=== PATIENT | male | born 1965 | race American Indian/Alaskan Native ===

== ENCOUNTER 2019-01-03 08:54 | Inpatient (IN) | payer OTHER ==
--- NOTE | 2019-01-03 09:47 | PDOC ---
History of Present Illness - General Chief Complaint: Revisit, Lab Variance Stated Complaint: SENT BY PCP/KIDNEY FAILURE Time Seen by Provider: 01/03/19 09:30 History Source: Patient Exam Limitations: No Limitations - History of Present Illness Initial Comments: 01/03/19 09:47 HPI 53 YOM with h/o DM2, HTN, HLD (selfdcd all his meds ~2-3 months ago), CKD presenting with abnormal outpatient lab results. He went to see his commercial insurance underwriter Dr Nori Mike ~several days ago for followup of his prior CKD surveillance (GFR ~15 previously), found to have elevated Cr and referred to the ED yesterday. Over the past 3 days, he has noted lower extremity edema worse with lying down and sitting. He notes over the past 2 weeks, he has experienced progressive weakness and mild dyspnea and pallor. Able to urinate and eating/drinking normally, no constitutional sx, no decreased output, dark urine, urgency/frequency, polydipsia or polyuria. Denies fever, chills, chest pain, palpitation, dizziness, weakness, N, V, D, abdominal pain, bladder and bowel problems, Last renal/bladder US ~2016, normal morphology. He self dcd his meds for diabetes, HTN and HLD. denies NSAID use or nephrotoxic agents. No otc meds or supplements. per commercial insurance underwriter - he has been followed for CKD with GFR ~15. Allergies: NKA Past Medical History: DM2, HTN, HLD Social history: Lives with family. No smoking. No alcohol. No illicit drugs. Surgical history: none PMD: none Senior Network Security Architect: Dr Nori Mike ROS Constitutional: no fevers or chills. No weight loss or anorexia/appetite changes. HEENT: no headache or dizziness. No congestion. No visual/hearing disturbances. CVS: no cp or syncope. +peripheral edema. Resp: +sob. No cough. Gastrointestinal: no abdominal pain, nausea or vomiting. Genitourinary: no urinary sx, hematuria. No urgency or frequency, no dark urine or malodor. No oliguria. MUSCULOSKELETAL: No joint pain and swelling. No neck or back pain. SKIN: no redness or skin changes, no discharge, no rash. No wounds. Hematologic: no easy bruising/bleeding. +pallor. NEUROLOGIC: No headache, dizziness, LOC or altered mental status. No weakness, numbness or tingling. Allergic/Immunologic: no allergies Endocrine: no polyuria or polydipsia, no hyperglycemia or hypoglycemia All other systems reviewed and negative, or as documented in HPI. PE: General: Well appearing, awake and alert, NAD. HEENT: NCAT, PERRL, EOMI, clear conjunctiva, anicteric, moist mucus membranes, clear oropharynx, no oral lesions.. Neck: neck supple, FROM; no JVD. Resp: CTAB, normal and even respirations, no respiratory distress CVS: mild tachycardia, no murmurs, 2+ peripheral pulses throughout, 2+ peripheral edema Abdomen: soft, NTND. no flank tenderness, no CVAT. Rectal: no gross blood, brown stool in rectal vault. no masses. Back: nontender, normal inspection and ROM MSK: no edema, CONTRERAS x4, ROM intact. No clubbing or cyanosis. normal bulk and tone. Extremities: no calf tenderness; 2+ peripheral pitting edema bilaterally over pretibial region. Neuro: alert, oriented appropriately; no focal neurologic deficits Skin: warm and well perfused, cap refill <2 sec, mild pallor for ethnicity; no ecchymosis, no erythema 01/03/19 10:46 01/03/19 10:46 01/03/19 11:21 01/03/19 11:35 Past History - Past Medical History Allergies/Adverse Reactions: Allergies Allergy/AdvReac Type Severity Reaction Status Date / Time No Known Allergies Allergy Verified 01/03/19 09:02 Home Medications: Ambulatory Orders NK [No Known Home Medication] 01/03/19 COPD: No Diabetes: Yes (NIDM) HTN: Yes Hypercholesterolemia: Yes - Immunization History Immunization Up to Date: Yes - Suicide/Smoking/Psychosocial Hx Smoking History: Never smoked Have you smoked in the past 12 months: No Information on smoking cessation initiated: No Hx Alcohol Use: No Drug/Substance Use Hx: No *Physical Exam - Vital Signs Last Vital Signs Temp Pulse Resp BP Pulse Ox 97.9 F 108 H 18 142/80 100 01/03/19 08:56 01/03/19 08:56 01/03/19 08:56 01/03/19 08:56 01/03/19 08:56 Moderate Sedation - Procedure Monitoring Vital Signs: Procedure Monitoring Vital Signs Temperature 97.9 F 01/03/19 08:56 Pulse Rate 108 H 01/03/19 08:56 Respiratory Rate 18 01/03/19 08:56 Blood Pressure 142/80 01/03/19 08:56 O2 Sat by Pulse Oximetry (%) 100 01/03/19 08:56 Heart Score/ECG Review #1 ECG reviewed & interpreted by me at: 09:40 General ECG Interpretation: Sinus Rhythm Compared to previous ECG there are: Previous ECG unavail 01/03/19 10:32 EKG normal sinus rhythm at 98 bpm, no interval abnormalities, narrow QRS, ST and T wave segments and morphology normal. Nonspecific T wave abnormalities ED Treatment Course - LABORATORY CBC & Chemistry Diagram: 01/03/19 09:45 01/03/19 09:45 - RADIOLOGY Radiology Studies Ordered: Category Date Time Status CHEST PA & LAT [RAD] Stat Radiology 01/03/19 09:29 Ordered Medical Decision Making - Medical Decision Making 01/03/19 10:31 See HPI for details dDx. renal insufficiency, ATN, pre-renal, electrolyte/metabolic Vital signs reviewed, wnl. mild tachy but no systemic sx or fever. tachy likely from severe anemia noted Prior images reviewed, no prior notes or admissions/discharges. laboratory results and imaging reviewed, basic labs and lytes notable for: - acute anemia, H/H 6.7/21 - with low mcv c/w microcytic anemia, also likely stemming from worsening renal failure. - anemia panel sent. txs - guaiac neg, brown stool - transfuse 2 units PRBC. pt consented with indications, risks and benefits of blood transfusion, agreeable, consent signed in chart. - IVF hydration. - Cr worsening, GFR 3 - urine lytes sent to differentiate. FeNa 1.9%, suspecting intrinsic renal failure consistent with known CKD and now worsening insufficiency. - potassium and remainder of lytes normal UA_+proteinuria, CXR_no acute chest pathology. EKG normal sinus rhythm at 98 bpm, no interval abnormalities, narrow QRS, ST and T wave segments and morphology normal. Nonspecific T wave abnormalities ED course - nephro cs with Dr Nori Mike. spoke with Dr Perez, will need non-emergent dialysis, arrangement for admission, [facility] cs with Dr Bliar service for access placement. - admit to hospitalist service - Dr Pizarro- for anemia, HELEN on CKD workup, vascular planning and HD/medical management. s/o to AYAZ Cade with the case and admitting to hospitalist service. 01/03/19 11:37 01/03/19 11:39 *DC/Admit/Observation/Transfer Diagnosis at time of Disposition: Anemia Qualifiers: Chronic kidney disease stage: unspecified stage Acute on chronic kidney failure Qualifiers: Acute renal failure type: unspecified Chronic kidney disease stage: unspecified stage Qualified Code(s): N17.9 - Acute kidney failure, unspecified - Discharge Dispostion Condition at time of disposition: Guarded Decision to Admit order: Yes Decision to Admit order Date/Time: 01/03/19 11:31 Decision to Admit Order Category Date Time Status Decision to Admit to Hospital Routine Admission 01/03/19 11:25 Ordered - Referrals Referrals: Nori Mike MD [Primary Care Provider] - - Patient Instructions - Post Discharge Activity
[2019-01-03 10:00] LABS: BASO % 0.5 % (0-2.0); EOS % 0.5 % (0-4.5); HEMATOCRIT 21.1 % (35.4-49); LYMPH % 16.8 % (8-40); MCHC 31.7 g/dl (32.0-35.9); MEAN CELL VOLUME 56.4 fl (80-96); MEAN PLT VOLUME 8.9 fl (7.5-11.1); NEUT % 75.2 % (42.8-82.8); PLATELET COUNT 300 K/MM3 (134-434); RBC 3.74 M/mm3 (4.00-5.60); RDW 17.8 % (11.9-15.9); WHITE BLOOD COUNT 12.4 K/mm3 (4.0-10.0)
[2019-01-03 10:01] LABS: MCH 17.9 pg (25.7-33.7)
[2019-01-03 10:03] LABS: HEMOGLOBIN 6.7 GM/dL (11.7-16.9)
[2019-01-03] MEDS ORDERED: SODIUM CHLORIDE 0.9% 500 ML INFUS.BAG IV ONE (10:34)
[2019-01-03 10:45] LABS: ALBUMIN 2.8 g/dl (3.4-5.0); ALK PHOS 120 U/L (45-117); ANION GAP 15 MMOL/L (8-16); BILIRUBIN,TOTAL 0.3 mg/dL (0.2-1); CHLORIDE 104 mmol/L (98-107); CO2 15 mmol/L (21-32); GLUCOSE,RANDOM 129 mg/dL (74-106); POTASSIUM 3.6 mmol/L (3.5-5.1); SGOT/AST 6 U/L (15-37); SGPT/ALT 11 U/L (13-61); SODIUM 134 mmol/L (136-145); TOT PROT 7.7 g/dl (6.4-8.2)
[2019-01-03 11:17] LABS: URINE APPEARANCE SLCLOUDY; URINE BILIRUBIN NEGATIVE (<2.0 mg/dL); URINE COLOR LTYELLOW; URINE GLUCOSE (UA) 2+ (NEGATIVE); URINE KETONE NEGATIVE (NEGATIVE); URINE LEUK ESTERASE NEGATIVE (NEGATIVE); URINE NITRITE NEGATIVE (NEGATIVE); URINE PROTEIN 3+ (NEGATIVE); URINE UROBILINOGEN NEGATIVE mg/dL (0.2-1.0)
[2019-01-03 11:18] LABS: URINE BACTERIA RARE /hpf (NONE SEEN)
[2019-01-03 11:42] LABS: URINE POTASSIUM 25.3 MMOL/L (25-125)
[2019-01-03 11:55] LABS: ANISOCYTOSIS 3+; MACROCYTOSIS 0; OVALOCYTE 1+; PLATELET ESTIMATE NORMAL; TARGET CELLS 1+
[2019-01-03 12:03] LABS: BLOOD UREA NITROGEN 149 mg/dL (7-18); CREATININE 15.4 mg/dL (0.55-1.3)
[2019-01-03 12:04] LABS: CALCIUM 6.4 mg/dL (8.5-10.1)
--- NOTE | 2019-01-03 12:09 | HP ---
CHIEF COMPLAINT: Fatigue, dyspnea PCP: Dr. Helton Reheater: Dr. Nori Mike HISTORY OF PRESENT ILLNESS: 53 year-old male with a PMH significant for HTN, Type II NIDDM, and CKD stage 5. Patient was referred to the ED by Dr. Nori Mike for symptoms of fatigue, dyspnea, lower extremity edema, and outpatient labs that showed BUN/Cr 130/14. [place] the [place] the past year and stopped taking his medications several months ago. He denies any change in urine output. No NSAID use. No recent contrast exposure. ED course (1) Hgb 6.7, MCV 56.4 (2) BUN/Cr 149/15.4 (3) Ca 6.4 Recent Travel: Arrived from [facility] 3 weeks ago PAST MEDICAL HISTORY: Hypertension Type II NIDDM CKD Stage 5 PAST SURGICAL HISTORY: Lasik surgery Social History: lives with family Smoking: denies Alcohol: denies Drugs: denies Family History: Allergies No Known Allergies Allergy (Verified 01/03/19 09:02) HOME MEDICATIONS: Home Medications Medication Instructions Recorded NK [No Known Home Medication] 01/03/19 REVIEW OF SYSTEMS CONSTITUTIONAL: +fatigue Absent: fever, chills, diaphoresis, generalized weakness, malaise, loss of appetite, weight change HEENT: Absent: rhinorrhea, nasal congestion, throat pain, throat swelling, difficulty swallowing, mouth swelling, ear pain, eye pain, visual changes CARDIOVASCULAR: Absent: chest pain, syncope, palpitations, irregular heart rate, lightheadedness , peripheral edema RESPIRATORY: +dyspnea Absent: cough, shortness of breath, dyspnea with exertion, orthopnea, wheezing, stridor, hemoptysis GASTROINTESTINAL: Absent: abdominal pain, abdominal distension, nausea, vomiting, diarrhea, constipation, melena, hematochezia GENITOURINARY: +lower extremity edema Absent: dysuria, frequency, urgency, hesitancy, hematuria, flank pain, genital pain MUSCULOSKELETAL: Absent: myalgia, arthralgia, joint swelling, back pain, neck pain SKIN: Absent: rash, itching, pallor HEMATOLOGIC/IMMUNOLOGIC: Absent: easy bleeding, easy bruising, lymphadenopathy, frequent infections ENDOCRINE: Absent: unexplained weight gain, unexplained weight loss, heat intolerance, cold intolerance NEUROLOGIC: Absent: headache, focal weakness or paresthesias, dizziness, unsteady gait, seizure, mental status changes, bladder or bowel incontinence PSYCHIATRIC: Absent: anxiety, depression, suicidal or homicidal ideation, hallucinations. PHYSICAL EXAMINATION Vital Signs - 24 hr 01/03/19 01/03/19 08:56 09:56 Temperature 97.9 F Pulse Rate 108 H Respiratory 18 Rate Blood Pressure 142/80 O2 Sat by Pulse 100 100 Oximetry (%) GENERAL: Awake, alert, and fully oriented, in no acute distress. HEAD: Normal with no signs of trauma. EYES: Pupils equal, round and reactive to light, extraocular movements intact, sclera anicteric, conjunctiva clear. No lid lag. EARS, NOSE, THROAT: Ears normal, nares patent, oropharynx clear without exudates. Moist mucous membranes. NECK: Normal range of motion, supple without lymphadenopathy, JVD, or masses. LUNGS: Breath sounds equal, clear to auscultation bilaterally. No wheezes, and no crackles. No accessory muscle use. HEART: Regular rate and rhythm, normal S1 and S2 without murmur, rub or gallop. ABDOMEN: Soft, nontender, not distended, normoactive bowel sounds, no guarding, no rebound, no masses. No hepatomegaly or splenomegaly. MUSCULOSKELETAL: Normal range of motion at all joints. No bony deformities or tenderness. No CVA tenderness. UPPER EXTREMITIES: 2+ pulses, warm, well-perfused. No cyanosis. No clubbing. No peripheral edema. LOWER EXTREMITIES: 2+ pulses, warm, well-perfused. No calf tenderness. Trace bilateral edema. NEUROLOGICAL: Cranial nerves II-XII intact. Normal speech. Laboratory Results - last 24 hr 01/03/19 01/03/19 01/03/19 09:45 09:45 10:00 WBC 12.4 H RBC 3.74 L Hgb 6.7 L* Hct 21.1 L MCV 56.4 L MCH 17.9 L MCHC 31.7 L RDW 17.8 H Plt Count 300 MPV 8.9 Absolute Neuts (auto) 9.4 H Neutrophils % 75.2 Lymphocytes % 16.8 Monocytes % 7.0 Eosinophils % 0.5 Basophils % 0.5 Nucleated RBC % 0 Hypochromia 1+ Platelet Estimate Normal Polychromasia 3+ Poikilocytosis 1+ Anisocytosis 3+ Microcytosis 2+ Macrocytosis 0 Target Cells 1+ Ovalocytes 1+ Retic Count Sodium 134 L Potassium 3.6 Chloride 104 Carbon Dioxide 15 L Anion Gap 15 BUN 149 H* Creatinine 15.4 H* Creat Clearance w eGFR 3.34 Random Glucose 129 H Calcium 6.4 L* Ferritin Total Bilirubin 0.3 AST 6 L ALT 11 L Alkaline Phosphatase 120 H LD Total Total Protein 7.7 Albumin 2.8 L Urine Color Urine Appearance Urine pH Ur Specific Kinsley Urine Protein Urine Glucose (UA) Urine Ketones Urine Blood Urine Nitrite Urine Bilirubin Urine Urobilinogen Ur Leukocyte Esterase Urine WBC (Auto) Urine RBC (Auto) Urine Bacteria U Random Total Protein Ur Random Sodium Urine Creatinine Stool Occult Blood Blood Type AB POSITIVE Antibody Screen Negative Crossmatch 01/03/19 01/03/19 01/03/19 10:13 10:13 10:20 WBC RBC Hgb Hct MCV MCH MCHC RDW Plt Count MPV Absolute Neuts (auto) Neutrophils % Lymphocytes % Monocytes % Eosinophils % Basophils % Nucleated RBC % Hypochromia Platelet Estimate Polychromasia Poikilocytosis Anisocytosis Microcytosis Macrocytosis Target Cells Ovalocytes Retic Count Sodium Potassium Chloride Carbon Dioxide Anion Gap BUN Creatinine Creat Clearance w eGFR Random Glucose Calcium Ferritin Total Bilirubin AST ALT Alkaline Phosphatase LD Total Total Protein Albumin Urine Color Ltyellow Urine Appearance Slcloudy Urine pH 5.0 Ur Specific Kinsley 1.012 Urine Protein 3+ H 568 H Urine Glucose (UA) 2+ H Urine Ketones Negative Urine Blood 1+ H Urine Nitrite Negative Urine Bilirubin Negative Urine Urobilinogen Negative Ur Leukocyte Esterase Negative Urine WBC (Auto) 13 Urine RBC (Auto) 1 Urine Bacteria Rare U Random Total Protein 567.6 H Ur Random Sodium 38 L Urine Creatinine 90.0 Stool Occult Blood Blood Type AB POSITIVE Antibody Screen Negative Crossmatch See Detail 01/03/19 01/03/19 01/03/19 10:32 10:32 10:45 WBC RBC Hgb Hct MCV MCH MCHC RDW Plt Count MPV Absolute Neuts (auto) Neutrophils % Lymphocytes % Monocytes % Eosinophils % Basophils % Nucleated RBC % Hypochromia Platelet Estimate Polychromasia Poikilocytosis Anisocytosis Microcytosis Macrocytosis Target Cells Ovalocytes Retic Count 1.86 H Sodium Potassium Chloride Carbon Dioxide Anion Gap BUN Creatinine Creat Clearance w eGFR Random Glucose Calcium Ferritin 175.8 Total Bilirubin AST ALT Alkaline Phosphatase LD Total 206 Total Protein Albumin Urine Color Urine Appearance Urine pH Ur Specific Kinsley Urine Protein Urine Glucose (UA) Urine Ketones Urine Blood Urine Nitrite Urine Bilirubin Urine Urobilinogen Ur Leukocyte Esterase Urine WBC (Auto) Urine RBC (Auto) Urine Bacteria U Random Total Protein Ur Random Sodium Urine Creatinine Stool Occult Blood Negative Blood Type Antibody Screen Crossmatch ASSESSMENT/PLAN: 53 year-old male with a PMH significant for HTN, Type II NIDDM, and CKD stage 5. Admitted for progressive CKD likely due to underlying diabetic nephropathy. Progressive CKD likely secondary to diabetic nephropathy Metabolic acidosis --for tunneled catheter placement tomorrow followed by dialysis --US renal vein and kidneys to r/o obstruction --start sodium bicarb BID Acute on chronic anemia --Hgb 6.7 --transfusing 2U PRBC today Hypocalcemia --corrected calcium 7.4 --calcium carbonate BID Hypertension --BP is stable Type II NIDDM --had been on metformin before self dc'ing ~ 4 months ago --Novolog sliding scale coverage --A1C pending FEN Fluids: PO intake adequate Electrolytes: replete as indicated Nutrition: diabetic, low sodium DVT prophylaxis: subq heparin Dispo: continues to require inpatient care. Full code. Visit type - Emergency Visit Emergency Visit: Yes ED Registration Date: 01/03/19 Care time: The patient presented to the Emergency Department on the above date and was hospitalized for further evaluation of their emergent condition. - New Patient This patient is new to me today: Yes Date on this admission: 01/03/19 - Critical Care Critical Care patient: No
--- NOTE | 2019-01-03 12:23 | CONSULT ---
Consult - text type - Consultation Consultation Note: Renal consult for progressive CKD This is a 53 year old [place] gentleman with hx of CKD stage 5, DM, Hypertension who presented from home with fatigue and dyspnea with outpatient labs that showed BUN/Cr of 130/14. Pt follow with Dr. Nori Mike but has been out of the country for the past year. He has been off all his antihypertensives and DM medications for the past several months. Does have Leg swelling and and orthopnea. No N/V. Appetite is normal. No flank pain. Denies any change in urine output. No NSAID use. No recent contrast exposure. PMHx: as above Allergies: NKDA Family Hx: NC Social Hx: No T/A/D ROS: as per HPI Home Medications Medication Instructions Recorded NK [No Known Home Medication] 01/03/19 Vital Signs Temperature 98.2 F 01/03/19 12:10 Pulse Rate 103 H 01/03/19 12:10 Respiratory Rate 18 01/03/19 12:10 Blood Pressure 138/79 01/03/19 12:10 O2 Sat by Pulse Oximetry (%) 96 01/03/19 12:10 Intake & Output 12/31/18 01/01/19 01/02/19 01/03/19 23:59 23:59 23:59 23:59 Weight 74.843 kg NAD awake and alert neck supple, no JVD RRR, NO M/R CTA but decreased BS soft NT/ND Trace LE edema, no clubbing or cyanosis No bladder distension CBC, BMP 01/03/19 09:45 01/03/19 09:45 Current Medications Heparin Sodium (Porcine) (Heparin -) 5,000 unit SQ TID IESHA Insulin Aspart (Novolog Vial Sliding Scale -) 1 vial SQ ACHS [facility]; Protocol 53 year old [place] gentleman with hx of CKD stage 5, DM, Hypertension who presented from home with fatigue and dyspnea with outpatient labs that showed BUN/Cr of 130/14. #Progressive CKD likely due to underlying diabetic nephropathy #Acute on chronic anemia #Metabolic acidosis #Hyponatremia #Hypertension #DM Pt will need renal replacement therapy, plan for tunneled HD catheter placement tomorrow and then subsequent dialysis Check repeat Renal US and renal vein doppler to ensure there is no obstruction Check ANAID, ANCA, SPEP Start sodium bicarb 650mg BID to get PRBC transfusion today and will start KENDRICK/Venofer with dialysis BP is acceptable today check Hgb A1C Thank you Will follow Billy Perez DO
[2019-01-03] MEDS ORDERED: CALCIUM GLUCONATE 10% - 1,000 MG/10 ML VIAL IVPB ONE (12:25)
[2019-01-03] MEDS ORDERED: FUROSEMIDE 40 MG/4 ML INJECTABLE VIAL IVPUSH ONE (12:26)
[2019-01-03 12:59] LABS: PHOSPHOROUS 6.7 mg/dL (2.5-4.9)
--- NOTE | 2019-01-03 15:22 | SPA.PREOP ---
- PRE-OP NOTE Dx: CKD stage 5 Planned Procedure: Permacath placement scheduled for 01/04 Surgeon: Dr Blair Last Vital Signs Temp Pulse Resp BP Pulse Ox 98.2 F 103 H 18 138/79 96 01/03/19 12:10 01/03/19 12:10 01/03/19 12:10 01/03/19 12:10 01/03/19 12:10 Lab Results WBC 12.4 K/mm3 (4.0-10.0) H 01/03/19 09:45 RBC 3.74 M/mm3 (4.00-5.60) L 01/03/19 09:45 Hgb 6.7 GM/dL (11.7-16.9) L* 01/03/19 09:45 Hct 21.1 % (35.4-49) L 01/03/19 09:45 MCV 56.4 fl (80-96) L 01/03/19 09:45 MCHC 31.7 g/dl (32.0-35.9) L 01/03/19 09:45 RDW 17.8 % (11.9-15.9) H 01/03/19 09:45 Plt Count 300 K/MM3 (134-434) 01/03/19 09:45 Sodium 134 mmol/L (136-145) L 01/03/19 09:45 Potassium 3.6 mmol/L (3.5-5.1) 01/03/19 09:45 Chloride 104 mmol/L (98-107) 01/03/19 09:45 Carbon Dioxide 15 mmol/L (21-32) L 01/03/19 09:45 Anion Gap 15 MMOL/L (8-16) 01/03/19 09:45 BUN 149 mg/dL (7-18) H* 01/03/19 09:45 Creatinine 15.4 mg/dL (0.55-1.3) H* 01/03/19 09:45 Random Glucose 129 mg/dL (74-106) H 01/03/19 09:45 Calcium 6.4 mg/dL (8.5-10.1) L* 01/03/19 09:45 Blood Type AB POSITIVE 01/03/19 10:20 Antibody Screen Negative 01/03/19 10:20 - IMAGING Chest X-ray: Pending EKG: Pending - ASSESSMENT/PLAN 53 y/o M w/ PMHx CKD stage 5, DM, HTN a/w fatigue and dyspnea found to have worsening renal function, planned for Permacath placement 01/04. 1. Make NPO after midnight except po meds 2. Medical optimization / clearance 3. Consent to be obtained by surgeon after risks, benefits and alternatives discussed with patient and or Health Care Proxy. 4. 2 units prbc ordered by primary team for h/h 6.7/21.1, f/u AM labs (cbc, chem) 5. Hold AM Heparin sq
--- NOTE | 2019-01-03 15:36 | EKG ---
Test Reason : Blood Pressure : / mmHG Vent. Rate : 098 BPM Atrial Rate : 098 BPM P-R Int : 186 ms QRS Dur : 104 ms QT Int : 364 ms P-R-T Axes : 009 049 101 degrees QTc Int : 464 ms NORMAL SINUS RHYTHM PROLONGED QT ABNORMAL ECG NO PREVIOUS ECGS AVAILABLE Confirmed by YAJAIRA RIVERA MD ([id number]) on 01/03/2019 3:35:42 PM Referred By: Confirmed By:YAJAIRA RIVERA MD
[2019-01-03] MEDS ORDERED: PT OWN MED DRAWER 7, Y5N ONE (17:01)
[2019-01-03] MEDS: INSULIN SLIDING SCALE (NOVOLOG) 1 VIAL SQ SCH ×2 (17:49→22:45)
[2019-01-03] MEDS: SODIUM BICARBONATE 650 MG TABLET PO SCH (22:44)
[2019-01-03] MEDS: CALCIUM CARBONATE 650 MG TABLET PO SCH (22:44)
[2019-01-04] MEDS: HEPARIN NA (PORCINE) 5,000 UNITS/ML 1ML VIAL SQ SCH ×2 (06:04→23:13)
[2019-01-04] MEDS: INSULIN SLIDING SCALE (NOVOLOG) 1 VIAL SQ SCH ×3 (06:04→20:33)
[2019-01-04 08:04] LABS: ACTIVATED PTT 30.5 SECONDS (25.2-36.5); INR 1.15 (0.83-1.09); PROTHROMBIN TIME (PATIENT) 13.6 SEC (9.7-13.0)
[2019-01-04 08:09] LABS: BASO % 0.2 % (0-2.0); EOS % 0.1 % (0-4.5); HEMATOCRIT 27.5 % (35.4-49); HEMOGLOBIN 8.9 GM/dL (11.7-16.9); LYMPH % 13.8 % (8-40); MCH 20.1 pg (25.7-33.7); MCHC 32.3 g/dl (32.0-35.9); MEAN CELL VOLUME 62.1 fl (80-96); MEAN PLT VOLUME 8.8 fl (7.5-11.1); MONO % 5.8 % (3.8-10.2); NEUT % 80.1 % (42.8-82.8); PLATELET COUNT 293 K/MM3 (134-434); RBC 4.43 M/mm3 (4.00-5.60); RDW 25.5 % (11.9-15.9); WHITE BLOOD COUNT 11.8 K/mm3 (4.0-10.0)
[2019-01-04] MEDS ORDERED: PT OWN MED DRAWER 7, Y5N ONE ×3 (08:52→22:48)
[2019-01-04] MEDS: CALCIUM CARBONATE 650 MG TABLET PO SCH ×2 (09:09→23:13)
[2019-01-04] MEDS: SODIUM BICARBONATE 650 MG TABLET PO SCH ×2 (09:09→23:13)
[2019-01-04 09:19] LABS: GLUCOSE,RANDOM 119 mg/dl (74-106)
[2019-01-04 09:20] LABS: ANION GAP 18 MMOL/L (8-16); CHLORIDE 106 mmol/L (98-107); CO2 13 mmol/L (21-32); MAGNESIUM 1.7 mg/dL (1.8-2.4); PHOSPHOROUS 7.4 mg/dl (2.5-4.9); POTASSIUM 3.9 mmol/L (3.5-5.1); SODIUM 137 mmol/L (136-145); TOT PROT 7.6 g/dl (6.4-8.2)
[2019-01-04 09:21] LABS: ALBUMIN 2.7 g/dl (3.4-5.0); ALK PHOS 123 U/L (45-117); BILIRUBIN,TOTAL 0.4 mg/dl (0.2-1); SGOT/AST 6 U/L (15-37); SGPT/ALT 9 U/L (13-61)
[2019-01-04 09:24] LABS: BLOOD UREA NITROGEN 147 mg/dl (7-18)
--- NOTE | 2019-01-04 09:47 | PN ---
Progress Note (short form) - Note Progress Note: multiple attempts to see the patient today but was in imaging and procedures all day Current Medications Generic Name Dose Route Start Last Admin Trade Name Jese PRN Reason Stop Dose Admin Calcium Carbonate 1,300 mg 01/03/19 22:00 01/04/19 09:09 Calcium Carbonate - PO 1,300 mg BID IESHA Administration Heparin Sodium (Porcine) 5,000 unit 01/04/19 06:00 01/04/19 06:04 Heparin - SQ Not Given TID IESHA Insulin Aspart 1 vial 01/03/19 16:30 01/04/19 06:04 Novolog Vial Sliding Scale - SQ Not Given ACHS [facility] Protocol Sodium Bicarbonate 650 mg 01/03/19 22:00 01/04/19 09:09 Sodium Bicarbonate - PO 650 mg BID IESHA Administration Last Vital Signs Temp Pulse Resp BP Pulse Ox 98 F 100 H 20 159/88 96 01/04/19 05:00 01/04/19 05:00 01/04/19 05:00 01/04/19 05:00 01/03/19 12:10 CBCD WBC 11.8 K/mm3 (4.0-10.0) H 01/04/19 07:00 RBC 4.43 M/mm3 (4.00-5.60) 01/04/19 07:00 Hgb 8.9 GM/dL (11.7-16.9) L 01/04/19 07:00 Hct 27.5 % (35.4-49) L D 01/04/19 07:00 MCV 62.1 fl (80-96) L D 01/04/19 07:00 MCHC 32.3 g/dl (32.0-35.9) 01/04/19 07:00 RDW 25.5 % (11.9-15.9) H 01/04/19 07:00 Plt Count 293 K/MM3 (134-434) 01/04/19 07:00 MPV 8.8 fl (7.5-11.1) 01/04/19 07:00 CMP Sodium 137 mmol/L (136-145) 01/04/19 06:00 Potassium 3.9 mmol/L (3.5-5.1) 01/04/19 06:00 Chloride 106 mmol/L (98-107) 01/04/19 06:00 Carbon Dioxide 13 mmol/L (21-32) L 01/04/19 06:00 Anion Gap 18 MMOL/L (8-16) H 01/04/19 06:00 BUN 147 mg/dl (7-18) H* 01/04/19 06:00 Creatinine 15.0 mg/dl (0.55-1.3) H* 01/04/19 06:00 Creat Clearance w eGFR 3.45 (>60) 01/04/19 06:00 Random Glucose 119 mg/dl (74-106) H 01/04/19 06:00 Calcium 7.0 mg/dl (8.5-10) L 01/04/19 06:00 Total Bilirubin 0.4 mg/dl (0.2-1) 01/04/19 06:00 AST 6 U/L (15-37) L 01/04/19 06:00 ALT 9 U/L (13-61) L 01/04/19 06:00 Alkaline Phosphatase 123 U/L (45-117) H 01/04/19 06:00 Total Protein 7.6 g/dl (6.4-8.2) 01/04/19 06:00 Albumin 2.7 g/dl (3.4-5.0) L 01/04/19 06:00 Assessment and Plan 53 year-old male with a PMH significant for HTN, Type II NIDDM, and CKD stage 5. Admitted for progressive CKD likely due to underlying diabetic nephropathy. 1. AGMA- due to renal failure. plan for HD initiation today. plan for permacath placement. will repeat labs post HD. on bicarb. vascular and nephro on board 2. Progressive CKD stage V- plan for initiation of HD 3. Acute on chronic anemia- s/p 2 units PRBC. Hgb now stable. will monitor closely. no indication for transfusion. epogen given 4. Hypocalcemia- corrected Ca 8. will start regular supplementation 5. hypomagnesmia- to be corrected with HD 6. HTN- does not take medications at home. will monitor BP with HD 7. DVT ppx- hep sq 8. will need establishment of outpatient HD prior to discharge. Visit type - Emergency Visit Emergency Visit: Yes ED Registration Date: 01/03/19 Care time: The patient presented to the Emergency Department on the above date and was hospitalized for further evaluation of their emergent condition. - New Patient This patient is new to me today: Yes Date on this admission: 01/04/19 - Critical Care Critical Care patient: No - Discharge Referral Referred to [facility] Med [facility] No
[2019-01-04] MEDS ORDERED: SODIUM CHLORIDE 250 ML IV PRN ×5 (11:28→16:51)
[2019-01-04] MEDS ORDERED: CALCIUM ACETATE 667 MG CAPSULE (FP) PO SCH (12:00)
--- NOTE | 2019-01-04 12:38 | PN ---
Progress Note (short form) - Note Progress Note: Renal follow up for progressive CKD Pt seen and examined at the bedside no acute complaints NPO for permacath today no sob, cp, abd pain tolerated PRBC well Vital Signs Temperature 98.6 F 01/04/19 09:00 Pulse Rate 98 H 01/04/19 09:00 Respiratory Rate 20 01/04/19 09:00 Blood Pressure 148/88 01/04/19 09:00 O2 Sat by Pulse Oximetry (%) 96 01/04/19 09:00 Intake & Output 01/01/19 01/02/19 01/03/19 01/04/19 23:59 23:59 23:59 23:59 Intake Total 500 0 Balance 500 0 Weight 72.575 kg 74.435 kg NAD awake and alert neck supple, no JVD RRR, NO M/R CTA but decreased BS soft NT/ND Trace LE edema, no clubbing or cyanosis No bladder distension CBC, BMP 01/04/19 07:00 01/04/19 06:00 Current Medications Calcium Acetate (Phoslo -) 667 mg PO TIDCM [facility] Calcium Carbonate (Calcium Carbonate -) 1,300 mg PO BID [facility] Last Admin: 01/04/19 09:09 Dose: 1,300 mg Desmopressin Acetate (Ddavp Injection -) 20 mcg IVPB ONCE ONE Stop: 01/04/19 10:30 Epoetin Earl (Epogen -) 20,000 unit IVPUSH ONCE ONE Stop: 01/04/19 11:30 Heparin Sodium (Porcine) (Heparin -) 5,000 unit SQ TID [facility] Last Admin: 01/04/19 06:04 Dose: Not Given Sodium Chloride (Normal Saline -) 250 mls @ 3,000 mls/hr IV PRN PRN PRN Reason: Hypotension during Dialysis Stop: 01/05/19 11:29 Insulin Aspart (Novolog Vial Sliding Scale -) 1 vial SQ ACHS [facility]; Protocol Last Admin: 01/04/19 06:04 Dose: Not Given Sodium Bicarbonate (Sodium Bicarbonate -) 650 mg PO BID [facility] Last Admin: 01/04/19 09:09 Dose: 650 mg 53 year old [place] gentleman with hx of CKD stage 5, DM, Hypertension who presented from home with fatigue and dyspnea with outpatient labs that showed BUN/Cr of 130/14. #Progressive CKD likely due to underlying diabetic nephropathy #Acute on chronic anemia #Metabolic acidosis #Hyponatremia #Hypertension #DM for permacath today and then dialysis this evening 2nd session of dialysis on Monday will need outpatiet HD unit placement continue oral bicarb for now, expect bicarb to improve following dialysis will give DDAVP for plt dysfunction related to renal failure prior to procedure will give KENDRICK with HD, iron studies pending Billy Perez DO
[2019-01-04] MEDS: DESMOPRESSIN ACETATE 4 MCG/ML AMP IVPB ONE ×2 (14:10→14:22)
[2019-01-04] MEDS ORDERED: EPOETIN ALFA 20,000 UNIT/1 ML VIAL IVPUSH ONE ×2 (14:45→17:00)
[2019-01-04] MEDS ORDERED: MIDAZOLAM HCL 2 MG/2 ML SINGLE DOSE VIAL ONE (15:13)
[2019-01-04] MEDS ORDERED: ceFAZolin SODIUM 1 GM VIAL IVPB ONE (15:20)
[2019-01-04] MEDS ORDERED: ceFAZolin SODIUM 1 GM VIAL ONE (15:25)
--- NOTE | 2019-01-04 15:50 | OP ---
Operative Note - Note: Operative Date: 01/04/19 Pre-Operative Diagnosis: ESRD Operation: Placement Permacath Implants: 23 cm Permacath Post-Operative Diagnosis: Same as Pre-op Surgeon: Bryon Blair Anesthesiologist/PURCHASING SUPERVISOR: Julia Garsia Anesthesia: Fractional
[2019-01-04] MEDS ORDERED: ACETAMINOPHEN WITH CODEINE 300MG/30MG TABLET PO PRN (16:12)
[2019-01-04] MEDS: CALCIUM ACETATE 667 MG CAPSULE (FP) PO SCH (20:33)
[2019-01-05] MEDS: INSULIN SLIDING SCALE (NOVOLOG) 1 VIAL SQ SCH ×5 (01:06→21:48)
[2019-01-05] MEDS: HEPARIN NA (PORCINE) 5,000 UNITS/ML 1ML VIAL SQ SCH ×4 (01:07→21:45)
[2019-01-05 09:09] LABS: HEMATOCRIT 24.1 % (35.4-49); HEMOGLOBIN 8.3 GM/dL (11.7-16.9); MCH 20.9 pg (25.7-33.7); MCHC 34.4 g/dl (32.0-35.9); MEAN CELL VOLUME 60.9 fl (80-96); MEAN PLT VOLUME 8.9 fl (7.5-11.1); PLATELET COUNT 255 K/MM3 (134-434); RBC 3.97 M/mm3 (4.00-5.60); RDW 24.9 % (11.9-15.9); WHITE BLOOD COUNT 9.7 K/mm3 (4.0-10.0)
[2019-01-05 09:28] LABS: ANION GAP 10 MMOL/L (8-16); BLOOD UREA NITROGEN 71 mg/dL (7-18); CALCIUM 7.4 mg/dL (8.5-10.1); CHLORIDE 102 mmol/L (98-107); CO2 25 mmol/L (21-32); GLUCOSE,RANDOM 164 mg/dL (74-106); PHOSPHOROUS 3.5 mg/dL (2.5-4.9); POTASSIUM 3.1 mmol/L (3.5-5.1); SODIUM 137 mmol/L (136-145)
[2019-01-05 09:45] LABS: CREATININE 8.3 mg/dL (0.55-1.3)
--- NOTE | 2019-01-05 09:47 | PN ---
Physical Exam: SUBJECTIVE: Patient seen and examined at HD. He has no complaints. He denies SOB , CP, palpitations. OBJECTIVE: Vital Signs Period Temp Pulse Resp BP Sys/Eller Pulse Ox Last 24 Hr 97.8 F-99.0 F 90-100 14-20 140-165/52-95 95-96 GENERAL: The patient is awake, alert, and fully oriented, in no acute distress. LUNGS: Breath sounds equal, clear to auscultation bilaterally, no wheezes, no crackles, no accessory muscle use. HEART: Regular rate and rhythm, S1, S2 without murmur, rub or gallop. ABDOMEN: Soft, nontender, nondistended, normoactive bowel sounds, no guarding, no rebound, no hepatosplenomegaly, no masses. EXTREMITIES: 2+ pulses, warm, well-perfused, no edema. Laboratory Results - last 24 hr 01/04/19 01/04/19 01/05/19 12:00 17:30 06:39 WBC RBC Hgb Hct MCV MCH MCHC RDW Plt Count MPV Sodium Potassium Chloride Carbon Dioxide Anion Gap BUN Creatinine Creat Clearance w eGFR POC Glucometer 100 143 Random Glucose Calcium Phosphorus Hep C Ab Diagnostic Cancelled Hepatitis C RNA Cancelled HCV RNA PCR log manager endoscopy/ml Cancelled HCV RNA (PCR) IUs/ml Cancelled HCV RNA PCR w/Genot Rflx Cancelled Liver Fibrosis Interp Cancelled 01/05/19 01/05/19 08:30 08:30 WBC 9.7 RBC 3.97 L Hgb 8.3 L Hct 24.1 L MCV 60.9 L MCH 20.9 L MCHC 34.4 RDW 24.9 H Plt Count 255 MPV 8.9 Sodium 137 Potassium 3.1 L Chloride 102 Carbon Dioxide 25 Anion Gap 10 BUN 71 H Creatinine 8.3 H* Creat Clearance w eGFR 6.82 POC Glucometer Random Glucose 164 H Calcium 7.4 L Phosphorus 3.5 Hep C Ab Diagnostic Hepatitis C RNA HCV RNA PCR log manager endoscopy/ml HCV RNA (PCR) IUs/ml HCV RNA PCR w/Genot Rflx Liver Fibrosis Interp Active Medications Generic Name Dose Route Start Last Admin Trade Name Freq PRN Reason Stop Dose Admin Acetaminophen/Codeine Phosphate 1 tab 01/04/19 16:12 Tylenol # 3 - PO Q4H PRN PAIN LEVEL 4 - 6 Calcium Acetate 667 mg 01/04/19 17:30 01/04/19 20:33 Phoslo - PO Not Given TIDCM [facility] Calcium Carbonate 1,300 mg 01/04/19 22:00 01/04/19 23:13 Calcium Carbonate - PO 1,300 mg BID [facility] Administration Heparin Sodium (Porcine) 5,000 unit 01/04/19 22:00 01/05/19 05:33 Heparin - SQ 5,000 unit TID [facility] Administration Sodium Chloride 250 mls @ 3,000 mls/hr 01/04/19 16:51 Normal Saline - IV 01/05/19 16:50 PRN PRN Hypotension during Dialysis Sodium Chloride 250 mls @ 3,000 mls/hr 01/04/19 16:51 Normal Saline - IV 01/05/19 16:50 PRN PRN Hypotension during Dialysis Insulin Aspart 1 vial 01/04/19 16:30 01/05/19 06:40 Novolog Vial Sliding Scale - SQ Not Given ACHS [facility] Protocol Sodium Bicarbonate 650 mg 01/04/19 22:00 01/04/19 23:13 Sodium Bicarbonate - PO 650 mg BID [facility] Administration ASSESSMENT/PLAN: This is a 53 year old man with a history of HTN, type 2 DM, stage 5 CKD who was sent to the ED for worsening BUN and creatinine with fatigue, SOB, and edema. 1. Progressive stage 5 CKD - Permacath placed and HD started yesterday - Awaiting outpatient HD placement - Renal US shows medical renal disease, no evidence of obstruction, no evidence of renal vein thrombosis - Hepatitis panel, SPEP, ANAID, ANCA pending 2. Metabolic acidosis - Secondary to worsening CKD - Improved with HD - Continue sodium bicarb PO 3. Chronic anemia - Microcytic - Ferritin normal. Iron, TIBC, iron sat pending - Transfused 2 units PRBCs this admission - Epogen with HD 4. Hypocalcemia and hyperphosphatemia - Continue calcium carbonate, PhosLo 5. Hypokalemia 6. Hypomagnesemia 7. HTN - On no medication Visit type - Emergency Visit Emergency Visit: Yes ED Registration Date: 01/03/19 Care time: The patient presented to the Emergency Department on the above date and was hospitalized for further evaluation of their emergent condition. - New Patient This patient is new to me today: Yes Date on this admission: 01/05/19 - Critical Care Critical Care patient: No - Discharge Referral Referred to [facility] No
[2019-01-05] MEDS: SODIUM BICARBONATE 650 MG TABLET PO SCH ×3 (09:52→21:45)
[2019-01-05] MEDS: CALCIUM CARBONATE 650 MG TABLET PO SCH ×3 (09:52→21:47)
[2019-01-05] MEDS: CALCIUM ACETATE 667 MG CAPSULE (FP) PO SCH ×3 (09:52→17:54)
[2019-01-05] MEDS ORDERED: PT OWN MED DRAWER 7, Y5N ONE (11:32)
--- NOTE | 2019-01-05 12:45 | PN ---
Progress Note (short form) - Note Progress Note: POD 1 No c/o Permacath working well. Await decision by patient on chronic dialysis plans. I discussed procedures for preparation for hemodialysis and peritoneal dialysis.
--- NOTE | 2019-01-05 14:29 | SPEC ---
DATE OF OPERATION: 01/04/2019 OPERATION: Placement of Perma-Cath, right-sided placement. PREOPERATIVE DIAGNOSIS: End-stage renal disease. ANESTHESIOLOGIST: Julia Garsia M.D. POSTOPERATIVE DIAGNOSIS: SURGEON: Murtaza Khan M.D. ANESTHESIA: Fractional. PROCEDURE: Following intravenous sedation, the patient was placed in the Trendelenburg position. The neck and chest were prepped with Betadine solution. Xylocaine 1% was infiltrated subcutaneously in the neck and the internal jugular vein cannulated with a fine needle. A fine flexible wire was passed proximally under fluoroscopic guidance into the superior vena cava. The tract around the wire was dilated and the wire was exchanged for a larger diameter wire. Additional Xylocaine was infiltrated on the chest wall and a stab wound made beneath the clavicle. With the aid of a tunneler, the catheter was passed from chest to neck to exit next the wire. The tract around the wire was again dilated and the introducer placed into the superior vena cava. The wire and the dilator were removed. The Perma-Cath was then passed through the introducer and the tips positioned in the right atrium. The introducer was peeled away, leaving the catheter in place. Each lumen was aspirated for blood and flushed with saline and Heparin solution. The neck wound was closed with a subcuticular suture of 4-0 Vicryl and the catheter was sutured to the skin at the exit site with 3-0 nylon. Sterile dressings were applied and the patient was taken to the recovery room for a chest x-ray. MURTAZA KHAN M.D. [id number] MTDD
--- NOTE | 2019-01-05 22:22 | PN ---
Progress Note (short form) - Note Progress Note: Progressive CKD likely due to underlying diabetic nephropathy Acute on chronic anemia Metabolic acidosis Hyponatremia Hypertension DM Current Medications Acetaminophen/Codeine Phosphate (Tylenol # 3 -) 1 tab PO Q4H PRN PRN Reason: PAIN LEVEL 4 - 6 Last Admin: 01/05/19 14:44 Dose: 1 tab Calcium Acetate (Phoslo -) 667 mg PO TIDCM [facility] Last Admin: 01/05/19 17:54 Dose: 667 mg Calcium Carbonate (Calcium Carbonate -) 1,300 mg PO BID [facility] Last Admin: 01/05/19 21:47 Dose: 1,300 mg Heparin Sodium (Porcine) (Heparin -) 5,000 unit SQ TID [facility] Last Admin: 01/05/19 21:45 Dose: 5,000 unit Insulin Aspart (Novolog Vial Sliding Scale -) 1 vial SQ ACHS [facility]; Protocol Last Admin: 01/05/19 21:48 Dose: 4 units Sodium Bicarbonate (Sodium Bicarbonate -) 650 mg PO BID [facility] Last Admin: 01/05/19 21:45 Dose: 650 mg Last Vital Signs Temp Pulse Resp BP Pulse Ox 99.2 F 93 H 20 146/68 95 01/05/19 17:21 01/05/19 17:21 01/05/19 17:21 01/05/19 17:21 01/04/19 21:00 seen while on dialysis treatment uneventful so fa Lungs clear Heart reg Abd soft nontender Ext no edema CBC, BMP 01/05/19 08:30 01/05/19 08:30 IMP- esrd Plan- plan hd monday for MWF schedule
[2019-01-06] MEDS: HEPARIN NA (PORCINE) 5,000 UNITS/ML 1ML VIAL SQ SCH ×3 (05:31→21:30)
[2019-01-06] MEDS: INSULIN SLIDING SCALE (NOVOLOG) 1 VIAL SQ SCH ×4 (06:11→21:32)
[2019-01-06 07:09] LABS: HEP.C VIRUS AB <0.1 s/co ratio (0.0-0.9)
[2019-01-06 07:38] LABS: HEMATOCRIT 24.7 % (35.4-49); HEMOGLOBIN 8.4 GM/dL (11.7-16.9); MCH 21.2 pg (25.7-33.7); MCHC 34.1 g/dl (32.0-35.9); MEAN CELL VOLUME 62.3 fl (80-96); MEAN PLT VOLUME 8.9 fl (7.5-11.1); PLATELET COUNT 242 K/MM3 (134-434); RBC 3.96 M/mm3 (4.00-5.60); RDW 24.3 % (11.9-15.9); WHITE BLOOD COUNT 9.9 K/mm3 (4.0-10.0)
[2019-01-06 08:13] LABS: ANION GAP 11 MMOL/L (8-16); BLOOD UREA NITROGEN 50 mg/dL (7-18); CHLORIDE 100 mmol/L (98-107); CO2 27 mmol/L (21-32); GLUCOSE,RANDOM 92 mg/dL (74-106); MAGNESIUM 1.2 mg/dL (1.8-2.4); PHOSPHOROUS 3.7 mg/dL (2.5-4.9); POTASSIUM 3.1 mmol/L (3.5-5.1); SODIUM 139 mmol/L (136-145)
[2019-01-06] MEDS: CALCIUM ACETATE 667 MG CAPSULE (FP) PO SCH ×3 (08:35→17:40)
--- NOTE | 2019-01-06 08:40 | PN ---
Physical Exam: SUBJECTIVE: Patient seen and examined. He has no complaints. OBJECTIVE: Vital Signs Period Temp Pulse Resp BP Sys/Eller Pulse Ox Last 24 Hr 98.3 F-99.2 F 90-103 18-20 146-175/68-108 GENERAL: The patient is awake, alert, and fully oriented, in no acute distress. LUNGS: Breath sounds equal, clear to auscultation bilaterally, no wheezes, no crackles, no accessory muscle use. HEART: Regular rate and rhythm, S1, S2 without murmur, rub or gallop. ABDOMEN: Soft, nontender, nondistended, normoactive bowel sounds, no guarding, no rebound, no hepatosplenomegaly, no masses. EXTREMITIES: 2+ pulses, warm, well-perfused, no edema. Laboratory Results - last 24 hr 01/04/19 01/05/19 01/05/19 17:30 06:00 08:30 WBC RBC Hgb Hct MCV MCH MCHC RDW Plt Count MPV Sodium 137 Potassium 3.1 L Chloride 102 Carbon Dioxide 25 Anion Gap 10 BUN 71 H Creatinine 8.3 H* Creat Clearance w eGFR 6.82 POC Glucometer Random Glucose 164 H Calcium 7.4 L Phosphorus 3.5 Magnesium Hepatitis A IgM Ab Negative Hep Bs Antigen Negative Hep B Core IgM Ab Negative Hep C Ab Diagnostic Cancelled Hepatitis C Antibody <0.1 Hepatitis C RNA Cancelled HCV RNA PCR log copper miner blasting/ml Cancelled HCV RNA (PCR) IUs/ml Cancelled HCV RNA PCR w/Genot Rflx Cancelled Liver Fibrosis Interp Cancelled 01/05/19 01/05/19 01/05/19 08:30 11:50 17:43 WBC 9.7 RBC 3.97 L Hgb 8.3 L Hct 24.1 L MCV 60.9 L MCH 20.9 L MCHC 34.4 RDW 24.9 H Plt Count 255 MPV 8.9 Sodium Potassium Chloride Carbon Dioxide Anion Gap BUN Creatinine Creat Clearance w eGFR POC Glucometer 128 145 Random Glucose Calcium Phosphorus Magnesium Hepatitis A IgM Ab Hep Bs Antigen Hep B Core IgM Ab Hep C Ab Diagnostic Hepatitis C Antibody Hepatitis C RNA HCV RNA PCR log copper miner blasting/ml HCV RNA (PCR) IUs/ml HCV RNA PCR w/Genot Rflx Liver Fibrosis Interp 01/05/19 01/06/19 01/06/19 21:47 05:30 06:00 WBC 9.9 RBC 3.96 L Hgb 8.4 L Hct 24.7 L MCV 62.3 L MCH 21.2 L MCHC 34.1 RDW 24.3 H Plt Count 242 MPV 8.9 Sodium Potassium Chloride Carbon Dioxide Anion Gap BUN Creatinine Creat Clearance w eGFR POC Glucometer 208 101 Random Glucose Calcium Phosphorus Magnesium Hepatitis A IgM Ab Hep Bs Antigen Hep B Core IgM Ab Hep C Ab Diagnostic Hepatitis C Antibody Hepatitis C RNA HCV RNA PCR log copper miner blasting/ml HCV RNA (PCR) IUs/ml HCV RNA PCR w/Genot Rflx Liver Fibrosis Interp 01/06/19 06:00 WBC RBC Hgb Hct MCV MCH MCHC RDW Plt Count MPV Sodium 139 Potassium 3.1 L Chloride 100 Carbon Dioxide 27 Anion Gap 11 BUN 50 H Creatinine Creat Clearance w eGFR 7.22 POC Glucometer Random Glucose 92 Calcium Phosphorus 3.7 Magnesium 1.2 L Hepatitis A IgM Ab Hep Bs Antigen Hep B Core IgM Ab Hep C Ab Diagnostic Hepatitis C Antibody Hepatitis C RNA HCV RNA PCR log copper miner blasting/ml HCV RNA (PCR) IUs/ml HCV RNA PCR w/Genot Rflx Liver Fibrosis Interp Active Medications Generic Name Dose Route Start Last Admin Trade Name Freq PRN Reason Stop Dose Admin Acetaminophen/Codeine Phosphate 1 tab 01/04/19 16:12 01/05/19 14:44 Tylenol # 3 - PO 1 tab Q4H PRN Administration PAIN LEVEL 4 - 6 Calcium Acetate 667 mg 01/04/19 17:30 01/06/19 08:35 Phoslo - PO 667 mg TIDCM [facility] Administration Calcium Carbonate 1,300 mg 01/04/19 22:00 01/05/19 21:47 Calcium Carbonate - PO 1,300 mg BID [facility] Administration Heparin Sodium (Porcine) 5,000 unit 01/04/19 22:00 01/06/19 05:31 Heparin - SQ 5,000 unit TID [facility] Administration Insulin Aspart 1 vial 01/04/19 16:30 01/06/19 06:11 Novolog Vial Sliding Scale - SQ Not Given ACHS [facility] Protocol Sodium Bicarbonate 650 mg 01/04/19 22:00 01/05/19 21:45 Sodium Bicarbonate - PO 650 mg BID [facility] Administration ASSESSMENT/PLAN: This is a 53 year old man with a history of HTN, type 2 DM, stage 5 CKD who was sent to the ED for worsening BUN and creatinine with fatigue, SOB, and edema. 1. Progressive stage 5 CKD - Permacath placed and HD started 01/04 - Continue HD // - Awaiting outpatient HD placement - Renal US shows medical renal disease, no evidence of obstruction, no evidence of renal vein thrombosis - Hepatitis panel, SPEP, ANAID, ANCA pending 2. Metabolic acidosis - Secondary to worsening CKD - Improved with HD - Continue sodium bicarb PO 3. Chronic anemia - Microcytic - Ferritin normal. Iron, TIBC, iron sat pending - Transfused 2 units PRBCs this admission - Continue Epogen with HD 4. Hypocalcemia and hyperphosphatemia - Continue calcium carbonate, PhosLo 5. Hypokalemia 6. Hypomagnesemia 7. HTN - On no medication Visit type - Emergency Visit Emergency Visit: Yes ED Registration Date: 01/03/19 Care time: The patient presented to the Emergency Department on the above date and was hospitalized for further evaluation of their emergent condition. - New Patient This patient is new to me today: No - Critical Care Critical Care patient: No - Discharge Referral Referred to [facility].: No
[2019-01-06 08:46] LABS: CALCIUM 6.5 mg/dL (8.5-10.1); CREATININE 7.9 mg/dL (0.55-1.3)
[2019-01-06] MEDS ORDERED: PT OWN MED DRAWER 7, Y5N ONE ×2 (09:28→20:25)
[2019-01-06] MEDS: CALCIUM CARBONATE 650 MG TABLET PO SCH ×2 (09:29→21:29)
[2019-01-06] MEDS: SODIUM BICARBONATE 650 MG TABLET PO SCH ×2 (09:29→21:29)
[2019-01-06 13:37] VITALS: BMI 25.2
--- NOTE | 2019-01-06 19:24 | PN ---
Progress Note (short form) - Note Progress Note: Progressive CKD likely due to underlying diabetic nephropathy Acute on chronic anemia Metabolic acidosis Hyponatremia Hypertension DM Current Medications Calcium Acetate (Phoslo -) 667 mg PO TIDCM [facility] Last Admin: 01/06/19 17:40 Dose: 667 mg Calcium Carbonate (Calcium Carbonate -) 1,300 mg PO BID [facility] Last Admin: 01/06/19 09:29 Dose: 1,300 mg Heparin Sodium (Porcine) (Heparin -) 5,000 unit SQ TID [facility] Last Admin: 01/06/19 13:32 Dose: 5,000 unit Insulin Aspart (Novolog Vial Sliding Scale -) 1 vial SQ ACHS [facility]; Protocol Last Admin: 01/06/19 17:44 Dose: 2 units Sodium Bicarbonate (Sodium Bicarbonate -) 650 mg PO BID [facility] Last Admin: 01/06/19 09:29 Dose: 650 mg Last Vital Signs Temp Pulse Resp BP Pulse Ox 98.7 F 102 H 20 140/70 95 01/06/19 17:03 01/06/19 17:03 01/06/19 17:03 01/06/19 17:03 01/06/19 09:00 seen while on dialysis treatment uneventful so fa Lungs clear Heart reg Abd soft nontender Ext no edema CBC, BMP 01/06/19 06:00 01/06/19 06:00 CBC, BMP 01/05/19 08:30 01/05/19 08:30 IMP- esrd s/p tx no 2 ANEMIA HYPOKALEMIA stable waiting to schedule outpatient HD Plan- plan hd monday for MWF schedule Diet Supervisor to advise him re k containing foods
[2019-01-06] MEDS ORDERED: SODIUM CHLORIDE 250 ML IV PRN (19:25)
[2019-01-07] MEDS: HEPARIN NA (PORCINE) 5,000 UNITS/ML 1ML VIAL SQ SCH ×3 (05:50→21:13)
[2019-01-07] MEDS: INSULIN SLIDING SCALE (NOVOLOG) 1 VIAL SQ SCH ×4 (06:05→21:13)
[2019-01-07 07:22] LABS: HEMATOCRIT 29.6 % (35.4-49); HEMOGLOBIN 9.6 GM/dL (11.7-16.9); MCH 20.4 pg (25.7-33.7); MCHC 32.5 g/dl (32.0-35.9); MEAN CELL VOLUME 62.8 fl (80-96); MEAN PLT VOLUME 8.8 fl (7.5-11.1); PLATELET COUNT 301 K/MM3 (134-434); RBC 4.71 M/mm3 (4.00-5.60); RDW 24.5 % (11.9-15.9); WHITE BLOOD COUNT 11.3 K/mm3 (4.0-10.0)
[2019-01-07 08:25] LABS: ANION GAP 13 MMOL/L (8-16); BLOOD UREA NITROGEN 65 mg/dL (7-18); CALCIUM 7.4 mg/dL (8.5-10.1); CHLORIDE 97 mmol/L (98-107); CO2 25 mmol/L (21-32); GLUCOSE,RANDOM 89 mg/dL (74-106); MAGNESIUM 1.3 mg/dL (1.8-2.4); POTASSIUM 3.2 mmol/L (3.5-5.1); SODIUM 136 mmol/L (136-145)
[2019-01-07] MEDS: CALCIUM ACETATE 667 MG CAPSULE (FP) PO SCH ×3 (08:27→17:18)
[2019-01-07] MEDS ORDERED: PT OWN MED DRAWER 7, Y5N ONE ×2 (11:42→21:06)
[2019-01-07] MEDS: SODIUM BICARBONATE 650 MG TABLET PO SCH ×2 (11:45→21:10)
[2019-01-07] MEDS: CALCIUM CARBONATE 650 MG TABLET PO SCH ×2 (11:46→21:10)
--- NOTE | 2019-01-07 11:47 | PN ---
Progress Note (short form) - Note Progress Note: Renal follow up for progressive CKD Pt seen and examined at the bedside s/p dialysis this morning no sob, cp, abd pain, fever, chills, N/V/D Vital Signs Temperature 98.3 F 01/07/19 14:00 Pulse Rate 90 01/07/19 14:00 Respiratory Rate 20 01/07/19 14:00 Blood Pressure 146/73 01/07/19 14:00 O2 Sat by Pulse Oximetry (%) 98 01/07/19 11:45 Intake & Output 01/04/19 01/05/19 01/06/19 01/07/19 23:59 23:59 23:59 23:59 Intake Total 126 939 5099 60 Balance 734 436 9510 60 Weight 74.435 kg 75.931 kg 73.028 kg 73.482 kg NAD awake and alert neck supple, no JVD RRR, NO M/R CTA but decreased BS soft NT/ND Trace LE edema, no clubbing or cyanosis No bladder distension CBC, BMP 01/07/19 05:30 01/07/19 06:00 Current Medications Calcium Acetate (Phoslo -) 667 mg PO TIDCM [facility] Last Admin: 01/07/19 11:45 Dose: 667 mg Calcium Carbonate (Calcium Carbonate -) 1,300 mg PO BID [facility] Last Admin: 01/07/19 11:46 Dose: 1,300 mg Heparin Sodium (Porcine) (Heparin -) 5,000 unit SQ TID [facility] Last Admin: 01/07/19 14:28 Dose: 5,000 unit Sodium Chloride (Normal Saline -) 250 mls @ 3,000 mls/hr IV PRN PRN PRN Reason: Hypotension during Dialysis Stop: 01/07/19 19:25 Insulin Aspart (Novolog Vial Sliding Scale -) 1 vial SQ ACHS [facility]; Protocol Last Admin: 01/07/19 11:45 Dose: Not Given Sodium Bicarbonate (Sodium Bicarbonate -) 650 mg PO BID [facility] Last Admin: 01/07/19 11:45 Dose: 650 mg 53 year old [place] gentleman with hx of CKD stage 5, DM, Hypertension who presented from home with fatigue and dyspnea with outpatient labs that showed BUN/Cr of 130/14. #Progressive CKD likely due to underlying diabetic nephropathy now ESRD on dialyiss #Acute on chronic anemia #Metabolic acidosis #Hypertension #DM s/p 3rd dialysis session this morning, tolerated it well for AVF placement by vascular surgery tomorrow Clinically stable/improved Hgb stable, will continue KENDRICK with HD can d/c sodium bicarb now Continue Calcium acetate Trend electrolytes daily NPO after midnight Billy Perez DO
--- NOTE | 2019-01-07 13:16 | SPA.PREOP ---
- PRE-OP NOTE Dx: ESRD Planned Procedure: Left upper ext arterio venous fistula Surgeon: Dr. Blair Last Vital Signs Temp Pulse Resp BP Pulse Ox 98.3 F 91 H 18 148/86 95 01/07/19 08:05 01/07/19 11:15 01/07/19 11:15 01/07/19 11:15 01/06/19 09:00 Lab Results WBC 11.3 K/mm3 (4.0-10.0) H 01/07/19 05:30 RBC 4.71 M/mm3 (4.00-5.60) 01/07/19 05:30 Hgb 9.6 GM/dL (11.7-16.9) L 01/07/19 05:30 Hct 29.6 % (35.4-49) L D 01/07/19 05:30 MCV 62.8 fl (80-96) L 01/07/19 05:30 MCHC 32.5 g/dl (32.0-35.9) 01/07/19 05:30 RDW 24.5 % (11.9-15.9) H 01/07/19 05:30 Plt Count 301 K/MM3 (134-434) D 01/07/19 05:30 Sodium 136 mmol/L (136-145) 01/07/19 06:00 Potassium 3.2 mmol/L (3.5-5.1) L 01/07/19 06:00 Chloride 97 mmol/L (98-107) L 01/07/19 06:00 Carbon Dioxide 25 mmol/L (21-32) 01/07/19 06:00 Anion Gap 13 MMOL/L (8-16) 01/07/19 06:00 BUN 65 mg/dL (7-18) H 01/07/19 06:00 Creatinine 9.0 mg/dL (0.55-1.3) H* 01/07/19 06:00 Random Glucose 89 mg/dL (74-106) 01/07/19 06:00 Calcium 7.4 mg/dL (8.5-10.1) L 01/07/19 06:00 Blood Type AB POSITIVE 01/03/19 10:20 Antibody Screen Negative 01/03/19 10:20 INR 1.15 (0.83-1.09) H 01/04/19 07:00 A/P: 53 yo female s/p permacath insertion 01/04 for ESRD, now plan for fistula creation of LUE - ASSESSMENT/PLAN 1. Make NPO after midnight except po meds 2. GI/DVT PPX 3. Medical optimization / clearance
--- NOTE | 2019-01-07 14:00 | PN ---
Progress Note, Physician Chief Complaint: No new complaints S/P Permacath placement - Current Medication List Current Medications: Active Medications Calcium Acetate (Phoslo -) 667 mg PO TIDCM [facility] Last Admin: 01/07/19 11:45 Dose: 667 mg Calcium Carbonate (Calcium Carbonate -) 1,300 mg PO BID [facility] Last Admin: 01/07/19 11:46 Dose: 1,300 mg Heparin Sodium (Porcine) (Heparin -) 5,000 unit SQ TID [facility] Last Admin: 01/07/19 05:50 Dose: 5,000 unit Sodium Chloride (Normal Saline -) 250 mls @ 3,000 mls/hr IV PRN PRN PRN Reason: Hypotension during Dialysis Stop: 01/07/19 19:25 Insulin Aspart (Novolog Vial Sliding Scale -) 1 vial SQ ACHS [facility]; Protocol Last Admin: 01/07/19 11:45 Dose: Not Given Sodium Bicarbonate (Sodium Bicarbonate -) 650 mg PO BID [facility] Last Admin: 01/07/19 11:45 Dose: 650 mg - Objective Vital Signs: Vital Signs Temperature 98.3 F 01/07/19 08:05 Pulse Rate 91 H 01/07/19 11:15 Respiratory Rate 18 01/07/19 11:15 Blood Pressure 148/86 01/07/19 11:15 O2 Sat by Pulse Oximetry (%) 95 01/06/19 09:00 Constitutional: Yes: Well Nourished, No Distress, Calm Eyes: Yes: WNL, Conjunctiva Clear, EOM Intact HENT: Yes: WNL, Atraumatic, Normocephalic Neck: Yes: Supple, Trachea Midline. No: Lymphadenopathy Cardiovascular: Yes: Regular Rate and Rhythm, S1, S2 Respiratory: Yes: Regular, CTA Bilaterally Gastrointestinal: Yes: Normal Bowel Sounds, Soft Extremities: Yes: WNL. No: Calf Tenderness Edema: No Peripheral Pulses: Left Doralis Pedis: 0, Right Dorsalis Pedis: 0 Neurological: Yes: Alert, Oriented ...Motor Strength: WNL, LUE, LLE Labs: CBC, BMP 01/07/19 05:30 01/07/19 06:00 INR, PTT INR 1.15 (0.83-1.09) H 01/04/19 07:00 Problem List - Problems (1) CKD (chronic kidney disease) stage 5, GFR less than 15 ml/min Assessment/Plan: Due to Diabetic Nephropathy permacath placed for HD access F/U HD regimen as per Renal consult SW for out patient Hd placement Code(s): N18.5 - CHRONIC KIDNEY DISEASE, STAGE 5 (2) T2DM (type 2 diabetes mellitus) Assessment/Plan: Glycemic control, Diabetic Diet', accucheck Correction dose Insulin Code(s): E11.9 - TYPE 2 DIABETES MELLITUS WITHOUT COMPLICATIONS (3) HTN (hypertension) Assessment/Plan: Well Controlled off medications Code(s): I10 - ESSENTIAL (PRIMARY) HYPERTENSION (4) Anemia Assessment/Plan: Chronic stable Code(s): D64.9 - ANEMIA, UNSPECIFIED Qualifiers: Chronic kidney disease stage: unspecified stage
[2019-01-08] MEDS: HEPARIN NA (PORCINE) 5,000 UNITS/ML 1ML VIAL SQ SCH (05:33)
[2019-01-08] MEDS: INSULIN SLIDING SCALE (NOVOLOG) 1 VIAL SQ SCH (06:23)
[2019-01-08] MEDS ORDERED: POVIDONE-IODINE OINTMENT 10% - 28.4 GM TUBE ONE (07:05)
[2019-01-08] MEDS ORDERED: HEPARIN NA (PORCINE) 5,000 UNITS/ML 1ML VIAL ONE ×2 (07:05→07:45)
[2019-01-08] MEDS ORDERED: LIDOCAINE HCL 1%, 10 MG/ML (20ML VIAL) ONE (07:05)
[2019-01-08] MEDS ORDERED: PAPAVERINE HCL 30 MG/1 ML 10 ML VIAL NR ONE (07:32)
[2019-01-08] MEDS ORDERED: PROPOFOL 20 ML ONE ×3 (07:42→09:42)
[2019-01-08] MEDS ORDERED: MIDAZOLAM HCL 2 MG/2 ML SINGLE DOSE VIAL ONE (07:42)
[2019-01-08] MEDS ORDERED: SUCCINYLCHOLINE CHLORIDE 200 MG/10 ML VIAL ONE (07:42)
[2019-01-08 07:52] LABS: BASO % 0.4 % (0-2.0); EOS % 2.1 % (0-4.5); HEMATOCRIT 26.7 % (35.4-49); HEMOGLOBIN 8.9 GM/dL (11.7-16.9); LYMPH % 21.4 % (8-40); MCHC 33.2 g/dl (32.0-35.9); MEAN CELL VOLUME 63.4 fl (80-96); MEAN PLT VOLUME 8.7 fl (7.5-11.1); MONO % 16.6 % (3.8-10.2); NEUT % 59.5 % (42.8-82.8); PLATELET COUNT 250 K/MM3 (134-434); RBC 4.22 M/mm3 (4.00-5.60); RDW 23.6 % (11.9-15.9)
[2019-01-08] MEDS ORDERED: BUPIVACAINE HCL/PF 0.5% (5MG/ML) 10 ML VIAL ONE (08:17)
[2019-01-08 08:19] LABS: ANION GAP 9 MMOL/L (8-16); CALCIUM 7.6 mg/dL (8.5-10.1); CHLORIDE 97 mmol/L (98-107); CO2 30 mmol/L (21-32); CREATININE 6.2 mg/dL (0.55-1.3); GLUCOSE,RANDOM 100 mg/dL (74-106); POTASSIUM 3.4 mmol/L (3.5-5.1); SODIUM 136 mmol/L (136-145)
[2019-01-08 08:20] LABS: BLOOD UREA NITROGEN 39 mg/dL (7-18)
[2019-01-08] MEDS: CALCIUM ACETATE 667 MG CAPSULE (FP) PO SCH (08:20)
[2019-01-08] MEDS ORDERED: ceFAZolin SODIUM 1 GM VIAL IVPB ONE (08:39)
[2019-01-08] MEDS ORDERED: LIDOCAINE HCL 1%, 10 MG/ML (20ML VIAL) INF ONE (08:47)
[2019-01-08] MEDS ORDERED: HEPARIN NA (PORCINE) 1,000 UNITS/ML 10ML M-D VIAL SQ ONE (08:56)
[2019-01-08] MEDS ORDERED: ONDANSETRON 4 MG/2 ML VIAL IVPUSH PRN ×2 (09:10→10:09)
[2019-01-08] MEDS ORDERED: LACTATED RINGERS SOLUTION 1,000 ML IV SCH ×2 (09:15→10:09)
[2019-01-08] MEDS ORDERED: POVIDONE-IODINE OINTMENT 10% - 28.4 GM TUBE TP ONE ×2 (09:45)
--- NOTE | 2019-01-08 09:54 | OP ---
Operative Note - Note: Operative Date: 01/08/19 Pre-Operative Diagnosis: ESRD Operation: Creation AV fistula left arm Brachial cephalic Findings: Patent cephalic vein and brachial artery in antecubital fossa. Post-Operative Diagnosis: Same as Pre-op Surgeon: Bryon Blair Web Site Developer: Padmini Elliott Anesthesiologist/CLINICAL EDUCATION COORDINATOR: Julia Garsia Anesthesia: MAC Estimated Blood Loss (mls): 10
--- NOTE | 2019-01-08 10:02 | SURG ---
Surgery Boring And Filling Machine Operator Note Boring And Filling Machine Operator: Padmini Elliott PA-C (Suzy) Date of Service: 01/08/19 Diagnosis: Creation AV fistula left arm Brachial cephalic Procedure: Creation AV fistula left arm Brachial cephalic I was present for the entirety of the operative procedure. For further detail, please refer to operative report. Visit type - Case Type Case Type: Scheduled - Emergency Emergency Visit: No - New patient This patient is new to me today: Yes Date on this admission: 01/08/19 - Critical Care Critical Care patient: No
[2019-01-08] MEDS ORDERED: SODIUM CHLORIDE 250 ML IV PRN (10:09)
[2019-01-08] MEDS ORDERED: INSULIN SLIDING SCALE (NOVOLOG) 1 VIAL SQ SCH (11:00)
[2019-01-08 11:48] LABS: ANISOCYTOSIS 2+; MACROCYTOSIS 0; OVALOCYTE 1+; PLATELET ESTIMATE NORMAL; TARGET CELLS 1+
[2019-01-08] MEDS ORDERED: CALCIUM ACETATE 667 MG CAPSULE (FP) PO SCH (12:00)
[2019-01-08] MEDS ORDERED: PT OWN MED DRAWER 7, Y5N ONE (12:07)
[2019-01-08 12:56] VITALS: BP 138/71; PULSE 83; TEMP 98
--- NOTE | 2019-01-08 13:56 | OP ---
DATE OF OPERATION: 01/08/2019 SURGEON: Bryon Blair MD SEEING EYE DOG TRAINER: MAMADOU Elliott PROCEDURE: Creation of arteriovenous fistula in the left arm. PREOPERATIVE DIAGNOSIS: End-stage renal disease. POSTOPERATIVE DIAGNOSIS: End-stage renal disease. ANESTHESIA: Regional block. ANESTHESIOLOGIST: Julia Garsia MD FINDINGS: The cephalic vein was patent in the antecubital fossa. The brachial artery was normal size with normal flow. OPERATIVE PROCEDURE: Following routine patient identification with site and side verification, a left supraclavicular block was established. The arm was prepped with ChloraPrep, and timeout was performed. An incision was made in the antecubital fossa and carried down to the subcutaneous tissues using cautery for hemostasis. The cephalic vein was identified and was carefully mobilized from the surrounding tissues. It was ligated distally and incised. It was distended with heparin and papaverine solution. Number 5 and number 8 feeding tubes were then passed proximally without resistance, and the vein was filled with heparin solution and occluded with a small bulldog clamp. The wound was deepened through the muscle fascia, and the brachial artery was mobilized superiorly. It was then dissected distally and secured a second time with a vessel loop. All side branches were ligated and divided. The artery was then occluded with the vessel loops and opened on exposed surface with a 6-mm arteriotomy. The end of the vein was then spatulated and anastomosed to the side of the artery with running sutures of 6-0 Prolene. Prior to placement of the suture line, the artery was allowed to back bleed and flush, and the vein was filled with heparin solution. Suture line was completed and all vessels released. There was good flow through the anastomosis with a palpable thrill proximally in the vein. Bleeding from the suture line was controlled with Surgicel. When hemostasis was achieved, the wound was closed with interrupted suture of 3-0 Vicryl in the subcutaneous tissues and skin shola. Sterile dressing was applied, and the patient was taken to the recovery room in stable condition. Shital BALDERAS/[id number]
[2019-01-08] MEDS ORDERED: HEPARIN NA (PORCINE) 5,000 UNITS/ML 1ML VIAL SQ SCH (14:00)
--- NOTE | 2019-01-08 14:25 | PN ---
Progress Note (short form) - Note Progress Note: Renal follow up for progressive CKD Pt seen and examined at the bedside awake and alert s/p AVF placement this am, arm is sore no sob, cp, abd pian, N/V/D has difficulty sleeping at night Vital Signs Temperature 98.0 F 01/08/19 10:50 Pulse Rate 83 01/08/19 10:50 Respiratory Rate 16 01/08/19 10:50 Blood Pressure 138/71 01/08/19 10:50 O2 Sat by Pulse Oximetry (%) 98 01/08/19 10:50 Intake & Output 01/05/19 01/06/19 01/07/19 01/08/19 23:59 23:59 23:59 23:59 Intake Total 600 1640 260 150 Output Total 10 Balance 600 1640 260 140 Weight 75.931 kg 73.028 kg 73.482 kg 73.255 kg NAD RRR, NO M/R CTA soft NT/ND no edema CBC, BMP 01/08/19 06:10 01/08/19 06:10 Current Medications Calcium Acetate (Phoslo -) 667 mg PO TIDCM [facility] Last Admin: 01/08/19 12:12 Dose: 667 mg Fentanyl (Sublimaze Injection -) 25 mcg IVPUSH [id number] PRN PRN Reason: PAIN-PACU ORDER X 4 DOSES ONLY Stop: 01/09/19 09:09 Heparin Sodium (Porcine) (Heparin -) 5,000 unit SQ TID [facility] Insulin Aspart (Novolog Vial Sliding Scale -) 1 vial SQ [facility]; Protocol Last Admin: 01/08/19 12:13 Dose: Not Given Losartan Potassium (Cozaar -) 25 mg PO DAILY [facility] Ondansetron HCl (Zofran Injection) 4 mg IVPUSH Q6H PRN PRN Reason: NAUSEA AND/OR VOMITING Stop: 01/09/19 09:24 53 year old [place] gentleman with hx of CKD stage 5, DM, Hypertension who presented from home with fatigue and dyspnea with outpatient labs that showed BUN/Cr of 130/14. #Progressive CKD likely due to underlying diabetic nephropathy now ESRD on dialyiss #Acute on chronic anemia #Metabolic acidosis #Hypertension #DM s/p AVF no acute need for DOCTOR OF RADIOLOGY today stable for discharge can start Losartan 25mg Daily as an outpatient for hypertension management continue calcium acetate 667mg TID with meals can discontinue sodium bicarbonate blood sugars have been ok, can consider starting glipizide as an outpatient outpatient dialysis seat secured at [facility]. First session tomorrow at 3pm. Billy Perez DO
--- NOTE | 2019-01-08 15:13 | DS ---
Physical Exam: SUBJECTIVE: Patient seen and examined OBJECTIVE: Vital Signs Period Temp Pulse Resp BP Sys/Eller Pulse Ox Last 24 Hr 97.5 F-98.8 F 77-93 16-20 118-149/66-84 93-98 PHYSICAL EXAM GENERAL: The patient is awake, alert, and fully oriented, in no acute distress. HEAD: Normal with no signs of trauma. EYES: PERRL, extraocular movements intact, sclera anicteric, conjunctiva clear. ENT: Ears normal, nares patent, oropharynx clear without exudates, moist mucous membranes. NECK: Trachea midline, full range of motion, supple. LUNGS: Breath sounds equal, clear to auscultation bilaterally, no wheezes, no crackles, no accessory muscle use. HEART: Regular rate and rhythm, S1, S2 without murmur, rub or gallop. ABDOMEN: Soft, nontender, nondistended, normoactive bowel sounds, no guarding, no rebound, no hepatosplenomegaly, no masses. EXTREMITIES: 2+ pulses, warm, well-perfused, no edema. NEUROLOGICAL: Cranial nerves II through XII grossly intact. Normal speech, gait not observed. PSYCH: Normal mood, normal affect. SKIN: Warm, dry, normal turgor, no rashes or lesions noted. LABS Laboratory Results - last 24 hr 01/05/19 01/07/19 01/07/19 06:00 17:19 20:50 WBC RBC Hgb Hct MCV MCH MCHC RDW Plt Count MPV Absolute Neuts (auto) Neutrophils % Lymphocytes % Monocytes % Eosinophils % Basophils % Nucleated RBC % Hypochromia Platelet Estimate Polychromasia Poikilocytosis Anisocytosis Microcytosis Macrocytosis Target Cells Ovalocytes Sodium Potassium Chloride Carbon Dioxide Anion Gap BUN Creatinine Creat Clearance w eGFR POC Glucometer 147 176 Random Glucose Calcium ANAID Screen Negative 01/08/19 01/08/19 01/08/19 06:10 06:10 06:15 WBC 9.0 RBC 4.22 Hgb 8.9 L Hct 26.7 L MCV 63.4 L MCH 21.0 L MCHC 33.2 RDW 23.6 H Plt Count 250 MPV 8.7 Absolute Neuts (auto) 5.4 Neutrophils % 59.5 D Lymphocytes % 21.4 D Monocytes % 16.6 H D Eosinophils % 2.1 D Basophils % 0.4 Nucleated RBC % 0 Hypochromia 1+ Platelet Estimate Normal Polychromasia 1+ Poikilocytosis 2+ Anisocytosis 2+ Microcytosis 2+ Macrocytosis 0 Target Cells 1+ Ovalocytes 1+ Sodium 136 Potassium 3.4 L Chloride 97 L Carbon Dioxide 30 Anion Gap 9 BUN 39 H Creatinine 6.2 H Creat Clearance w eGFR 9.56 POC Glucometer 106 Random Glucose 100 Calcium 7.6 L ANAID Screen 01/08/19 10:28 WBC RBC Hgb Hct MCV MCH MCHC RDW Plt Count MPV Absolute Neuts (auto) Neutrophils % Lymphocytes % Monocytes % Eosinophils % Basophils % Nucleated RBC % Hypochromia Platelet Estimate Polychromasia Poikilocytosis Anisocytosis Microcytosis Macrocytosis Target Cells Ovalocytes Sodium Potassium Chloride Carbon Dioxide Anion Gap BUN Creatinine Creat Clearance w eGFR POC Glucometer 109 Random Glucose Calcium ANAID Screen HOSPITAL COURSE: Date of Admission:01/03/19 Date of Discharge: 01/08/19 Discharge Summary Reason For Visit: ANEMIA;ACUTE RENAL INSUFFICIENCY Current Active Problems Acute on chronic kidney failure (Acute) Anemia (Acute) CKD (chronic kidney disease) stage 5, GFR less than 15 ml/min (Acute) HTN (hypertension) (Acute) T2DM (type 2 diabetes mellitus) (Acute) Condition: Improved - Instructions Diet, Activity, Other Instructions: Post-operative Instructions Wound: Keep your dressing clean and dry and in place for 72 hours. You may shower in 48 hours with a waterproof bag or Saran wrap over the original dressing. In 72 hours when you remove the dressing, you may wet the incision in the shower ONLY. Allow soap and water to run over the incision, do not scrub the incision, pat dry well after showering. Check the incision daily after removal of the dressing for redness or drainage. If you note any redness or drainage, contact your surgeon immediately. Do not swim or soak in water (bath/hot tub, etc) until cleared by your surgeon as this can lead to infection. Do not put creams or ointments on the wound until cleared by your surgeon. Diet: You may resume your regular diet unless otherwise instructed by your physician. Increased your fiber intake if taking narcotic pain medications as constipation is a common side effect. Pain Relief: Take pain medication as prescribed. Do not drive, drink alcohol or operate heavy machinery while taking narcotic pain medications. If the pain medication you have been prescribed for pain contains Acetaminophen (Tylenol), do not take additional Tylenol with this pain medication. You should not exceed more than 4g (4000mg) of Tylenol in 24 hours as this can lead to liver damage or failure. Activity: No heavy lifting with your operative arm until cleared by your surgeon. Do no wear any occlusive jewlery on your operative arm as this can affect the functioning of your fistula. Follow-up Please call the office to schedule your follow up appointment in 2 weeks. Call your doctors office or go to the ER immediately if you develop: Trouble breathing, chest tightness or shortness of breath Oral temperature greater than 100.5 F Excessive redness, swelling, or drainage at the incision site. Foul odor from the incision. New, increasing pain/numbness/weakness or coolness in your arm. DIABETES: Please your hemaglobic A1c was 6.6. This puts you as borderline diabetic. We will defer starting you on any diabetic medications until you see your primary care doctor. They may want to start you on a diabetic medication. Please follow up within 1 week after discharge. YOUR NEXT DIALYSIS IS SCHEDULED FOR TOMORROW AT 3PM. HYPERTENSION. Start on Coozar daily for your elevated blood pressure. Continue taking the Phoslo (Calcium Acetate) three times per day with meals. This medication is used to prevent high blood phosphate adilson in patients who are on dialysis. Disposition: HOME - Home Medications Comprehensive Discharge Medication List: Ambulatory Orders Calcium Acetate [Phoslo -] 667 mg PO TIDCM #120 capsule 01/08/19 Losartan Potassium [Cozaar -] 25 mg PO DAILY #30 tablet 01/08/19 - Discharge Referral Referred to [facility] Med P.C.: No
[2019-01-08 18:13] LABS: ATYPICAL pANCA <1:20 titer (Neg:<1:20); C-ANCA <1:20 titer (Neg:<1:20); P-ANCA <1:20 titer (Neg:<1:20)
[2019-01-08] MEDS ORDERED: CALCIUM CARBONATE 650 MG TABLET PO SCH (22:00)
[2019-01-08] MEDS ORDERED: SODIUM BICARBONATE 650 MG TABLET PO SCH (22:00)
[2019-01-09 01:11] LABS: HBSAG SCREEN Negative (Negative); HEP A AB, IGM Negative (Negative); HEP B CORE AB, TOT Negative (Negative)
[2019-01-09] MEDS ORDERED: LOSARTAN POTASSIUM 25 MG TABLET PO SCH (10:00)
[2019-01-15 11:12] LABS: SERUM IRON SATURATION 8; TOTAL IRON BINDING CAPACITY 215; UIBC 198
[2019-01-20 13:04] LABS: SERUM IRON SATURATION 8; TOTAL IRON BINDING CAPACITY 215; UIBC 198
== END 2019-01-08 16:26 | disposition home or self-care (01) | DRG 674 ==
LOC: JER 08:54 → JERBED 11:25 → J8W 12:54
PROVIDERS: ATTEND Nurse Practitioner Family
PROC: 02HV33Z Insertion of Infusion Device into Superior Vena Cava, Percutaneous Approach (ICD-10-PCS; 2019-01-04)
PROC: 5A1D70Z Performance of Urinary Filtration, Intermittent, Less than 6 Hours Per Day (ICD-10-PCS; 2019-01-04)
PROC: 5A1D70Z Performance of Urinary Filtration, Intermittent, Less than 6 Hours Per Day (ICD-10-PCS; 2019-01-05)
PROC: 5A1D70Z Performance of Urinary Filtration, Intermittent, Less than 6 Hours Per Day (ICD-10-PCS; 2019-01-07)
PROC: B518ZZA Fluoroscopy of Superior Vena Cava, Guidance (ICD-10-PCS; 2019-01-08)
PROC: 03180ZD Bypass Left Brachial Artery to Upper Arm Vein, Open Approach (ICD-10-PCS; principal; 2019-01-08 08:00)
DX: N17.9 Acute kidney failure, unspecified (principal); I12.0 Hypertensive chronic kidney disease with stage 5 chronic kidney disease or end stage renal disease; E87.2 Acidosis; E87.1 Hypo-osmolality and hyponatremia; N18.6 End stage renal disease; E83.51 Hypocalcemia; D63.8 Anemia in other chronic diseases classified elsewhere; E83.42 Hypomagnesemia; E11.22 Type 2 diabetes mellitus with diabetic chronic kidney disease; E83.39 Other disorders of phosphorus metabolism; E87.6 Hypokalemia; E11.21 Type 2 diabetes mellitus with diabetic nephropathy; Z99.2 Dependence on renal dialysis
CPT/HCPCS: 36415; 36430; 36511; 71045-TC-FY; 71046-TC-FY; 76000-TC-FY; 76775-TC; 80048; 80053; 80074; 81003; 81015; 82272; 82436; 82570; 82728; 82962; 83010; 83036; 83520; 83540; 83550; 83615; 83735; 84100; 84155; 84156; 84165; 84300; 85025; 85027; 85044; 85610; 85730; 86038; 86256; 86704; 86706; 86708; 86803; 86850; 86900; 86901; 86922; 87340; 93005; 93010; 93975; 94760; 99284-25; J0885; J1644; J2597; P9038; P9058

== ENCOUNTER 2021-07-10 13:11 | Observation (INO) | payer OTHER ==
[2021-07-10] MEDS ORDERED: morphine CARPU-JECT 4 MG/1 ML DISP.SYRIN IVPUSH ONE (14:15)
[2021-07-10] MEDS ORDERED: ONDANSETRON 4 MG/2 ML VIAL IVPUSH ONE (14:16)
[2021-07-10] MEDS ORDERED: MORPHINE SULFATE 2 MG/ML VIAL ONE (14:49)
[2021-07-10] MEDS ORDERED: ONDANSETRON 4 MG/2 ML VIAL ONE (14:50)
[2021-07-10 14:57] LABS: HEMATOCRIT 36.7 % (35.4-49); HEMOGLOBIN 11.3 GM/dL (11.7-16.9); MCHC 30.7 g/dl (32.0-35.9); MEAN CELL VOLUME 61.7 fl (80-96); MEAN PLT VOLUME 8.1 fl (7.5-11.1); PLATELET COUNT 286 10^3/uL (134-434); RBC 5.95 M/mm3 (4.00-5.60); RDW 17.1 % (11.9-15.9); WHITE BLOOD COUNT 11.1 K/mm3 (4.0-10.0)
[2021-07-10 15:01] LABS: CHLORIDE 96 mmol/L (98-107); SODIUM 131 mmol/L (136-145)
[2021-07-10 15:02] LABS: MCH 18.9 pg (25.7-33.7)
[2021-07-10 15:04] LABS: ALBUMIN 3.4 g/dl (3.4-5.0); CALCIUM 8.6 mg/dL (8.5-10.1)
[2021-07-10 15:05] LABS: CO2 19 mmol/L (21-32); GLUCOSE,RANDOM 227 mg/dL (74-106); MAGNESIUM 2.2 mg/dL (1.8-2.4)
[2021-07-10 15:07] LABS: SGPT/ALT 16 U/L (13-61)
[2021-07-10 15:08] LABS: SGOT/AST 46 U/L (15-37)
[2021-07-10 15:09] LABS: BILIRUBIN,TOTAL 0.5 mg/dL (0.2-1); TOT PROT 9.2 g/dl (6.4-8.2)
[2021-07-10 15:10] LABS: ALK PHOS 161 U/L (45-117)
[2021-07-10 15:17] LABS: ANION GAP 16 MMOL/L (8-16); CREATININE 11.7 mg/dL (0.55-1.3)
[2021-07-10] MEDS ORDERED: SODIUM CHLORIDE 250 ML IV PRN (16:14)
[2021-07-10 16:45] LABS: ANISOCYTOSIS 2+; PLATELET ESTIMATE ADEQUATE
[2021-07-11] MEDS: INSULIN SLIDING SCALE (NOVOLOG) 1 VIAL SQ SCH ×3 (01:42→11:56)
[2021-07-11 02:16] VITALS: BMI 26.2
[2021-07-11] MEDS ORDERED: PT OWN MED DRAWER 7, Y5N ONE (06:37)
[2021-07-11] MEDS: HEPARIN NA (PORCINE) 5,000 UNITS/ML 1ML VIAL SQ SCH ×2 (06:40→13:42)
[2021-07-11 06:41] LABS: HEMATOCRIT 35.3 % (35.4-49); HEMOGLOBIN 11.1 GM/dL (11.7-16.9); MCHC 31.3 g/dl (32.0-35.9); MEAN CELL VOLUME 61.9 fl (80-96); MEAN PLT VOLUME 8.4 fl (7.5-11.1); PLATELET COUNT 244 10^3/uL (134-434); WHITE BLOOD COUNT 7.9 K/mm3 (4.0-10.0)
[2021-07-11 07:00] LABS: MCH 19.4 pg (25.7-33.7)
[2021-07-11] MEDS ORDERED: GLIMEPIRIDE 2 MG TABLET PO SCH (07:00)
[2021-07-11 07:02] LABS: CHLORIDE 101 mmol/L (98-107); SODIUM 140 mmol/L (136-145)
[2021-07-11 07:10] LABS: GLUCOSE,RANDOM 98 mg/dL (74-106); SGOT/AST 8 U/L (15-37); SGPT/ALT 15 U/L (13-61)
[2021-07-11 07:11] LABS: ANION GAP 9 MMOL/L (8-16); CALCIUM 8.5 mg/dL (8.5-10.1); CO2 29 mmol/L (21-32); MAGNESIUM 2.1 mg/dL (1.8-2.4)
[2021-07-11 07:12] LABS: BILIRUBIN,TOTAL 0.3 mg/dL (0.2-1); TOT PROT 7.9 g/dl (6.4-8.2)
[2021-07-11 07:13] LABS: ALK PHOS 138 U/L (45-117); PHOSPHOROUS 4.3 mg/dL (2.5-4.9)
[2021-07-11 07:14] LABS: BLOOD UREA NITROGEN 41.4 mg/dL (7-18); CREATININE 7.9 mg/dL (0.55-1.3)
[2021-07-11] MEDS: CALCIUM ACETATE 667 MG CAPSULE (FP) PO SCH ×2 (09:13→11:57)
[2021-07-11 09:18] VITALS: TEMP 98.6
[2021-07-11 13:41] VITALS: BP 154/83; PULSE 88
[2021-07-11] MEDS ORDERED: LOSARTAN POTASSIUM 25 MG TABLET PO ONE (13:45)
== END 2021-07-11 15:00 | disposition home or self-care (01) ==
LOC: JER 13:11 → UNDOADMOB 15:28 → INTOOBSV 15:28 → JERBED 15:28 → J4S 07-11 01:23 → JERBED 07-11 01:23 → J4S 07-11 13:00
PROVIDERS: ADMIT Internal Medicine; ATTEND Nurse Practitioner Family
PROC: 3E013VG Introduction of Insulin into Subcutaneous Tissue, Percutaneous Approach (ICD-10-PCS; principal; 2021-07-11)
PROC: 3E013GC Introduction of Other Therapeutic Substance into Subcutaneous Tissue, Percutaneous Approach (ICD-10-PCS; 2021-07-11)
DX: E87.1 Hypo-osmolality and hyponatremia (principal); E87.5 Hyperkalemia; Z91.15 Patient's noncompliance with renal dialysis; E11.22 Type 2 diabetes mellitus with diabetic chronic kidney disease; I12.0 Hypertensive chronic kidney disease with stage 5 chronic kidney disease or end stage renal disease; N18.5 Chronic kidney disease, stage 5; N17.9 Acute kidney failure, unspecified; Z99.2 Dependence on renal dialysis; Z79.84 Long term (current) use of oral hypoglycemic drugs; D64.9 Anemia, unspecified; D72.829 Elevated white blood cell count, unspecified
CPT/HCPCS: 36415; 71045-TC-FY; 74177-TC; 80053; 82962; 83735; 84100; 85025; 85027; 86803; 87340; 93005; 93010; 96372; 99285-25; C9803; G0378; J1644; Q9967; U0003; U0005

== ENCOUNTER 2023-05-19 10:55 | Observation (INO) | payer OTHER ==
[2023-05-19 11:09] VITALS: BMI 24.1
[2023-05-19 12:26] LABS: BASO % 0.4 % (0-2.0); EOS % 1.2 % (0-4.5); HEMATOCRIT 29.6 % (35.4-49); LYMPH % 22.6 % (8-40); MCH 20.5 pg (25.7-33.7); MCHC 30.5 g/dl (32.0-35.9); MEAN CELL VOLUME 67.4 fl (80-96); MEAN PLT VOLUME 9.5 fl (7.5-11.1); MONO % 7.9 % (3.8-10.2); NEUT % 67.9 % (42.8-82.8); PLATELET COUNT 235 10^3/uL (134-434); RBC 4.39 M/mm3 (4.00-5.60); RDW 17.6 % (11.9-15.9); WHITE BLOOD COUNT 8.8 K/mm3 (4.0-10.0)
[2023-05-19 12:34] LABS: INR 1.06 (0.83-1.09); PROTHROMBIN TIME (PATIENT) 12.3 SEC (9.7-13.0)
[2023-05-19 12:37] LABS: ACTIVATED PTT 33.9 SECONDS (25.2-36.5)
[2023-05-19 12:48] LABS: ANISOCYTOSIS 3+; MACROCYTOSIS 0
[2023-05-19 12:52] LABS: CHLORIDE 99 mmol/L (98-107); SODIUM 137 mmol/L (136-145)
[2023-05-19 12:55] LABS: ALBUMIN 3.3 g/dl (3.4-5.0); BLOOD UREA NITROGEN 94.8 mg/dL (7-18); CO2 24 mmol/L (21-32); GLUCOSE,RANDOM 164 mg/dL (74-106); MAGNESIUM 2.4 mg/dL (1.8-2.4)
[2023-05-19 12:58] LABS: PHOSPHOROUS 6.3 mg/dL (2.5-4.9); SGOT/AST 16 U/L (15-37); SGPT/ALT 20 U/L (13-61)
[2023-05-19 12:59] LABS: BILIRUBIN,TOTAL 0.4 mg/dL (0.2-1)
[2023-05-19 13:01] LABS: ALK PHOS 178 U/L (45-117)
[2023-05-19 13:04] LABS: ANION GAP 14 MMOL/L (8-16); CREATININE 14.5 mg/dL (0.55-1.3); POTASSIUM 6.5 mmol/L (3.5-5.1)
[2023-05-19] MEDS ORDERED: INSULIN REGULAR HUMAN 100 UNITS/ML *VIAL IVPUSH ONE (13:09)
[2023-05-19] MEDS ORDERED: DEXTROSE 50%-WATER - 25 GM/50 ML VIAL IVPUSH ONE (13:09)
[2023-05-19] MEDS ORDERED: SODIUM ZIRCONIUM CYCLOSILICATE (LOKELMA) 5 GM PACKET PO ONE (13:10)
[2023-05-19] MEDS ORDERED: SODIUM CHLORIDE 250 ML IV PRN (14:00)
[2023-05-19] MEDS ORDERED: EPOETIN ALFA-EPBX 10,000 UNIT/ML VIAL SQ ONE (14:30)
[2023-05-19] MEDS ORDERED: INSULIN SLIDING SCALE (NOVOLOG) 1 VIAL SQ SCH (16:30)
[2023-05-19 17:28] VITALS: TEMP 97.9
[2023-05-19 18:06] VITALS: BP 158/84; PULSE 86; RESP 17
[2023-05-19] MEDS ORDERED: HEPARIN NA (PORCINE) 5,000 UNITS/ML 1ML VIAL SQ SCH (22:00)
[2023-05-19] MEDS ORDERED: clonazePAM 0.5 MG TABLET PO SCH (22:00)
== END 2023-05-19 18:11 | disposition left against medical advice (07) ==
LOC: JER 10:55 → JERBED 11:53
PROVIDERS: ADMIT Internal Medicine; ATTEND Internal Medicine
PROC: 3E023GC Introduction of Other Therapeutic Substance into Muscle, Percutaneous Approach (ICD-10-PCS; principal; 2023-05-19)
DX: Z91.158 Patient's noncompliance with renal dialysis for other reason (principal); E11.22 Type 2 diabetes mellitus with diabetic chronic kidney disease; I12.0 Hypertensive chronic kidney disease with stage 5 chronic kidney disease or end stage renal disease; N18.6 End stage renal disease; Z99.2 Dependence on renal dialysis; G47.00 Insomnia, unspecified; R94.4 Abnormal results of kidney function studies
CPT/HCPCS: 36415; 71045-TC-FY; 80053; 83735; 84100; 85025; 85610; 85730; 86705; 86803; 87340; 87517; 87522; 93005; 93010; 96372; 99285-25; G0378; Q5106

== ENCOUNTER 2023-12-11 14:11 | Observation (INO) | payer OTHER ==
[2023-12-11 15:45] LABS: INR 1.17 (0.83-1.09); PROTHROMBIN TIME (PATIENT) 13.5 SEC (9.7-13.0)
[2023-12-11 15:47] LABS: ACTIVATED PTT 33.1 SECONDS (25.2-36.5)
[2023-12-11 15:50] LABS: BASO % 0.4 % (0-2.0); HEMATOCRIT 31.3 % (35.4-49); HEMOGLOBIN 9.5 GM/dL (11.7-16.9); LYMPH % 21.3 % (8-40); MCH 19.3 pg (25.7-33.7); MCHC 30.4 g/dl (32.0-35.9); MEAN CELL VOLUME 63.3 fl (80-96); MEAN PLT VOLUME 8.6 fl (7.5-11.1); MONO % 8.6 % (3.8-10.2); NEUT % 68.7 % (42.8-82.8); PLATELET COUNT 262 10^3/uL (134-434); RBC 4.94 M/mm3 (4.00-5.60); WHITE BLOOD COUNT 11.1 K/mm3 (4.0-10.0)
[2023-12-11 15:53] LABS: CHLORIDE 96 mmol/L (98-107); POTASSIUM 4.9 mmol/L (3.5-5.1); SODIUM 134 mmol/L (136-145)
[2023-12-11 15:55] LABS: CALCIUM 8.8 mg/dL (8.5-10.1)
[2023-12-11 15:56] LABS: ALBUMIN 3.2 g/dl (3.4-5.0); ANION GAP 16 mmol/L (4-13); BLOOD UREA NITROGEN 87.3 mg/dL (7-18); CO2 21 mmol/L (21-32); GLUCOSE,RANDOM 222 mg/dL (74-106); MAGNESIUM 2.5 mg/dL (1.8-2.4)
[2023-12-11 15:59] LABS: PHOSPHOROUS 6.6 mg/dL (2.5-4.9); SGOT/AST 15 U/L (15-37); SGPT/ALT 26 U/L (13-61)
[2023-12-11 16:00] LABS: TOT PROT 8.7 g/dl (6.4-8.2)
[2023-12-11 16:01] LABS: BILIRUBIN,TOTAL 0.4 mg/dL (0.2-1)
[2023-12-11 16:02] LABS: ALK PHOS 254 U/L (45-117); CREATININE 14.3 mg/dL (0.55-1.3)
[2023-12-11 16:17] LABS: ANISOCYTOSIS 2+; MACROCYTOSIS 0; OVALOCYTE 1+
[2023-12-11 18:16] VITALS: BMI 25.5
[2023-12-12] MEDS: INSULIN ASPART SLIDING SCALE (NOVOLOG) 1 VIAL SQ SCH (06:45)
[2023-12-12] MEDS ORDERED: SODIUM CHLORIDE 250 ML IV PRN (08:38)
[2023-12-12 10:24] LABS: CHLORIDE 98 mmol/L (98-107); POTASSIUM 5.3 mmol/L (3.5-5.1); SODIUM 132 mmol/L (136-145)
[2023-12-12 10:26] LABS: ANION GAP 17 mmol/L (4-13); CALCIUM 7.9 mg/dL (8.5-10.1); CO2 17 mmol/L (21-32)
[2023-12-12 10:27] LABS: GLUCOSE,RANDOM 131 mg/dL (74-106)
[2023-12-12] MEDS: HEPARIN NA (PORCINE) 5,000 UNITS/ML 1ML VIAL IVPUSH ONE (10:30)
[2023-12-12 10:38] LABS: BLOOD UREA NITROGEN 104.9 mg/dL (7-18); CREATININE 15.4 mg/dL (0.55-1.3)
[2023-12-12 11:20] LABS: MAGNESIUM 2.3 mg/dL (1.8-2.4)
[2023-12-12] MEDS: EPOETIN ALFA-EPBX 4,000 UNIT/ML VIAL IVPUSH ONE (11:44)
[2023-12-12 15:15] VITALS: RESP 18
[2023-12-12] MEDS: HEPARIN NA (PORCINE) 5,000 UNITS/ML 1ML VIAL SQ SCH (21:29)
[2023-12-13 09:10] LABS: BASO % 0.5 % (0-2.0); EOS % 2.6 % (0-4.5); HEMATOCRIT 28.9 % (35.4-49); HEMOGLOBIN 8.9 GM/dL (11.7-16.9); LYMPH % 28.6 % (8-40); MCHC 30.8 g/dl (32.0-35.9); MEAN CELL VOLUME 62.6 fl (80-96); MEAN PLT VOLUME 8.2 fl (7.5-11.1); MONO % 11.7 % (3.8-10.2); NEUT % 56.6 % (42.8-82.8); PLATELET COUNT 259 10^3/uL (134-434); RBC 4.61 M/mm3 (4.00-5.60); RDW 15.7 % (11.9-15.9); WHITE BLOOD COUNT 8.7 K/mm3 (4.0-10.0)
[2023-12-13 09:18] LABS: MCH 19.3 pg (25.7-33.7)
[2023-12-13 09:36] LABS: CHLORIDE 96 mmol/L (98-107); POTASSIUM 4.2 mmol/L (3.5-5.1); SODIUM 136 mmol/L (136-145)
[2023-12-13 09:39] LABS: CALCIUM 7.9 mg/dL (8.5-10.1)
[2023-12-13 09:40] LABS: ALBUMIN 2.8 g/dl (3.4-5.0); ANION GAP 13 mmol/L (4-13); CO2 27 mmol/L (21-32); GLUCOSE,RANDOM 140 mg/dL (74-106); MAGNESIUM 2.1 mg/dL (1.8-2.4)
[2023-12-13 09:43] LABS: PHOSPHOROUS 5.7 mg/dL (2.5-4.9); SGOT/AST 13 U/L (15-37); SGPT/ALT 20 U/L (13-61)
[2023-12-13 09:44] LABS: BILIRUBIN,TOTAL 0.5 mg/dL (0.2-1)
[2023-12-13 09:45] LABS: TOT PROT 7.8 g/dl (6.4-8.2)
[2023-12-13 09:46] LABS: ALK PHOS 229 U/L (45-117)
[2023-12-13 09:49] LABS: BLOOD UREA NITROGEN 52.8 mg/dL (7-18)
[2023-12-13] MEDS ORDERED: SODIUM CHLORIDE 250 ML IV PRN (11:54)
[2023-12-13 14:44] VITALS: BP 172/79; PULSE 73; TEMP 98.8
[2023-12-14 02:06] LABS: FIBROSIS SCORE. 0.15 (0.00-0.21); HCV ALPHA 2 MACRO CHART 92 mg/dL (110-276); NECRO.INFLAM ACT.SCORE 0.09 (0.00-0.17); NECROINFLAM. ACTIVITY GRADE A0-No activity (.)
[2023-12-14] MEDS ORDERED: EPOETIN ALFA-EPBX 10,000 UNIT/ML VIAL SQ ONE (11:54)
[2023-12-14] MEDS ORDERED: HEPARIN NA (PORCINE) 5,000 UNITS/ML 1ML VIAL IVPUSH ONE (11:54)
== END 2023-12-13 15:00 | disposition left against medical advice (07) ==
LOC: JER 14:11 → JERBED 16:15 → J6S 18:24
PROVIDERS: ADMIT Internal Medicine; ATTEND Internal Medicine
PROC: 3E033GC Introduction of Other Therapeutic Substance into Peripheral Vein, Percutaneous Approach (ICD-10-PCS; principal; 2023-12-11)
DX: E11.22 Type 2 diabetes mellitus with diabetic chronic kidney disease (principal); I12.0 Hypertensive chronic kidney disease with stage 5 chronic kidney disease or end stage renal disease; N18.6 End stage renal disease; Z99.2 Dependence on renal dialysis; D64.9 Anemia, unspecified; Z91.158 Patient's noncompliance with renal dialysis for other reason
CPT/HCPCS: 0241U-QW; 36415; 71046-TC-FY; 80048; 80053; 82172; 82962; 82977; 83010; 83735; 83883; 84100; 84460; 85025; 85610; 85730; 86704; 86705; 86706; 86707; 86708; 86803; 86850; 86900; 86901; 87340; 87350; 87517; 93005; 93010; 93990-TC; 96372; 96374; 96375; 99285-25; G0378; J1644; Q5106

== ENCOUNTER 2023-12-27 13:14 | Inpatient (IN) | payer OTHER ==
[2023-12-27 13:44] VITALS: BMI 25.1
[2023-12-27] MEDS ORDERED: ACETAMINOPHEN INJECTION 100 ML IVPB ONE (14:44)
[2023-12-27] MEDS: ACETAMINOPHEN 1000 MG/100 ML BAG IVPB ONE (14:50)
[2023-12-27 15:05] LABS: BASO % 0.2 % (0-2.0); EOS % 0.3 % (0-4.5); HEMATOCRIT 31.9 % (35.4-49); HEMOGLOBIN 9.7 GM/dL (11.7-16.9); LYMPH % 10.8 % (8-40); MCHC 30.5 g/dl (32.0-35.9); MEAN CELL VOLUME 61.4 fl (80-96); MEAN PLT VOLUME 7.9 fl (7.5-11.1); NEUT % 82.7 % (42.8-82.8); PLATELET COUNT 284 10^3/uL (134-434); RDW 15.6 % (11.9-15.9); WHITE BLOOD COUNT 9.4 K/mm3 (4.0-10.0)
[2023-12-27 15:06] LABS: MCH 18.7 pg (25.7-33.7)
[2023-12-27 15:12] LABS: INR 1.13 (0.83-1.09); PROTHROMBIN TIME (PATIENT) 13.1 SEC (9.7-13.0)
[2023-12-27 15:14] LABS: ACTIVATED PTT 34.2 SECONDS (25.2-36.5)
[2023-12-27 15:22] LABS: CHLORIDE 96 mmol/L (98-107); POTASSIUM 5.2 mmol/L (3.5-5.1); SODIUM 129 mmol/L (136-145)
[2023-12-27 15:24] LABS: ALBUMIN 3.6 g/dl (3.4-5.0); ANION GAP 12 mmol/L (4-13); CALCIUM 8.8 mg/dL (8.5-10.1); CO2 22 mmol/L (21-32); GLUCOSE,RANDOM 353 mg/dL (74-106)
[2023-12-27 15:27] LABS: SGPT/ALT 23 U/L (13-61)
[2023-12-27 15:28] LABS: SGOT/AST 21 U/L (15-37)
[2023-12-27 15:29] LABS: BILIRUBIN,TOTAL 0.4 mg/dL (0.2-1); TOT PROT 9.2 g/dl (6.4-8.2)
[2023-12-27 15:30] LABS: ALK PHOS 193 U/L (45-117)
[2023-12-27 15:32] LABS: ANISOCYTOSIS 2+; CREATININE 8.5 mg/dL (0.55-1.3); MACROCYTOSIS 0; N-TERMINAL BNP 2997.1 pg/ml (5-125)
[2023-12-27] MEDS ORDERED: ASPIRIN 81 MG CHEWABLE TABLETS ONE (18:12)
[2023-12-27] MEDS ORDERED: HEPARIN NA (PORCINE) 5,000 UNITS/ML 1ML VIAL IVPUSH PRN ×2 (18:13)
[2023-12-27] MEDS: ASPIRIN 325 MG TABLET PO ONE (18:13)
[2023-12-27] MEDS ORDERED: HEPARIN INFUSION - 25,000 UNITS/500 ML INFUS.BAG IVPB ONE (18:34)
[2023-12-27] MEDS ORDERED: HEPARIN NA (PORCINE) 5,000 UNITS/ML 1ML VIAL ONE (18:34)
[2023-12-27] MEDS: HEPARIN - 25,000 UNIT in SODIUM CHLORIDE 495 ML IV SCH (18:46)
[2023-12-27] MEDS: HEPARIN NA (PORCINE) 5,000 UNITS/ML 1ML VIAL IVPUSH ONE (18:46)
[2023-12-27] MEDS ORDERED: METOPROLOL TARTRATE 25 MG TABLET (FP) ONE (18:50)
[2023-12-27] MEDS ORDERED: NITROGLYCERIN 2% OINTMENT - 1GM PACKET TD ONE (18:51)
[2023-12-27] MEDS: METOPROLOL TARTRATE 25 MG TABLET (FP) PO ONE (18:56)
[2023-12-27] MEDS: NITROGLYCERIN 2% OINTMENT - 1GM PACKET TD ONE (18:56)
[2023-12-27] MEDS ORDERED: CLOPIDOGREL BISULFATE 300 MG TABLET ONE (19:28)
[2023-12-27] MEDS: CLOPIDOGREL BISULFATE 300 MG TABLET PO ONE (19:31)
[2023-12-27] MEDS: INSULIN (NOVOLOG) ASPART 100 UNITS/ML 10ML VIAL SQ ONE ×2 (20:03→20:52)
[2023-12-27] MEDS ORDERED: ACETAMINOPHEN 1000 MG/100 ML BAG IVPB PRN (21:30)
[2023-12-28] MEDS ORDERED: NITROGLYCERIN 2% OINTMENT - 1GM PACKET TD SCH (06:00)
[2023-12-28 06:55] VITALS: RESP 18
[2023-12-28 07:08] LABS: BASO % 0.6 % (0-2.0); EOS % 2.2 % (0-4.5); HEMATOCRIT 28.2 % (35.4-49); HEMOGLOBIN 8.7 GM/dL (11.7-16.9); LYMPH % 29.4 % (8-40); MEAN CELL VOLUME 61.6 fl (80-96); MEAN PLT VOLUME 8.2 fl (7.5-11.1); MONO % 10.9 % (3.8-10.2); NEUT % 56.9 % (42.8-82.8); PLATELET COUNT 249 10^3/uL (134-434); RBC 4.58 M/mm3 (4.00-5.60); RDW 15.6 % (11.9-15.9); WHITE BLOOD COUNT 8.6 K/mm3 (4.0-10.0)
[2023-12-28 07:25] LABS: MCH 19.1 pg (25.7-33.7)
[2023-12-28 07:53] LABS: ALK PHOS 161 U/L (45-117); ANION GAP 12 mmol/L (4-13); BILIRUBIN,TOTAL 0.4 mg/dL (0.2-1); BLOOD UREA NITROGEN 65.9 mg/dL (7-18); CALCIUM 8.1 mg/dL (8.5-10.1); CHLORIDE 97 mmol/L (98-107); CO2 22 mmol/L (21-32); CREATININE 9.7 mg/dL (0.55-1.3); GLUCOSE,RANDOM 176 mg/dL (74-106); MAGNESIUM 1.8 mg/dL (1.8-2.4); PHOSPHOROUS 6.9 mg/dL (2.5-4.9); POTASSIUM 4.4 mmol/L (3.5-5.1); SGOT/AST 105 U/L (15-37); SGPT/ALT 26 U/L (13-61); SODIUM 131 mmol/L (136-145); TOT PROT 7.8 g/dl (6.4-8.2)
[2023-12-28] MEDS ORDERED: METOPROLOL TARTRATE 25 MG TABLET (FP) PO SCH (10:00)
[2023-12-28] MEDS ORDERED: ASPIRIN 81 MG CHEWABLE TABLETS PO SCH ×2 (10:00→18:00)
[2023-12-28] MEDS ORDERED: CLOPIDOGREL BISULFATE 75 MG TABLET (FP) PO SCH ×2 (10:00→19:00)
[2023-12-28] MEDS ORDERED: ATORVASTATIN CA 80 MG TABLET (FP) PO SCH ×2 (10:00→22:00)
[2023-12-28] MEDS: METOPROLOL TARTRATE 25 MG TABLET (FP) PO SCH (10:31)
[2023-12-28 12:00] VITALS: BP 120/69; PULSE 83; TEMP 97.6
== END 2023-12-28 12:41 | disposition short-term general hospital (02) | DRG 280 ==
LOC: JER 13:14 → JERBED 16:55 → J4W 23:27
PROVIDERS: ADMIT Internal Medicine; ATTEND Internal Medicine
DX: I21.4 Non-ST elevation (NSTEMI) myocardial infarction (principal); N18.6 End stage renal disease; I12.0 Hypertensive chronic kidney disease with stage 5 chronic kidney disease or end stage renal disease; E87.1 Hypo-osmolality and hyponatremia; E11.22 Type 2 diabetes mellitus with diabetic chronic kidney disease; Z99.2 Dependence on renal dialysis; Z79.84 Long term (current) use of oral hypoglycemic drugs; E87.5 Hyperkalemia; D64.9 Anemia, unspecified; E11.65 Type 2 diabetes mellitus with hyperglycemia
CPT/HCPCS: 0241U-QW; 36415; 71046-TC-FY; 71275-TC; 74174-TC; 80053; 82962; 83036; 83735; 83880; 84100; 84484; 85025; 85610; 85730; 93005; 93010; 93306-TC; 99285-25; J0131; J1644; Q9967